=== PATIENT | male | born 1940 | race Caucasian/White ===

== ENCOUNTER 2016-10-13 10:43 | Emergency (ER) | payer MEDICARE, BC ==
[2016-10-13 10:57] VITALS: BP 133/81
--- NOTE | 2016-10-13 11:24 | EDM.PDOC ---
ED HPI GENERAL MEDICAL PROBLEM - General Chief Complaint: Cardiovascular Problem Stated Complaint: A-FIB Time Seen by Provider: 10/13/16 11:22 Source of Information: Reports: Patient, Family History Limitations: Reports: No Limitations - History of Present Illness INITIAL COMMENTS - FREE TEXT/NARRATIVE: pt arrived with a irregular heart rate. The pt thought he was in atrial fib. he has noted in the last month swelling in the left leg. 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 He does not have pain in the leg. Onset: Today, Sudden Duration: Hour(s): Location: Reports: Chest Associated Symptoms: Reports: No Other Symptoms, Other ( swelling in the left leg. ) - Related Data Allergies Allergy/AdvReac Type Severity Reaction Status Date / Time No Known Allergies Allergy Verified 10/13/16 10:58 Home Meds: Home Meds Simvastatin 80 mg PO BEDTIME 10/15/13 [History] Metoprolol Succinate 25 mg PO DAILY #30 tab.er.24h 05/04/16 [Rx] Warfarin [Coumadin] 2.5 mg PO DAILY 05/04/16 [History] Aspirin [Yves Chewable Aspirin] 81 mg PO DAILY 05/17/16 [History] Past Medical History HEENT History: Reports: Cataract Cardiovascular History: Reports: Afib, Blood Clots/VTE/DVT, High Cholesterol, Other (See Below) Other Cardiovascular History: Cardioversion Respiratory History: Reports: PE Other Respiratory History: 2006 Gastrointestinal History: Reports: None Genitourinary History: Reports: BPH, Other (See Below) Other Genitourinary History: prostrate cancer Neurological History: Reports: TIA Oncologic (Cancer) History: Reports: Prostate - Infectious Disease History Infectious Disease History: Reports: Chicken Pox, Measles - Past Surgical History HEENT Surgical History: Reports: Cataract Surgery GI Surgical History: Reports: Appendectomy, Hernia Repair/Other Male Surgical History: Reports: Prostatectomy Musculoskeletal Surgical History: Reports: Hip Replacement Social & Family History - Family History Cardiac: Reports: CAD - Tobacco Use Smoking Status *Q: Never Smoker Second Hand Smoke Exposure: No - Caffeine Use Caffeine Use: Reports: Coffee, Soda - Alcohol Use Days Per Week of Alcohol Use: 7 Number of Drinks Per Day: 2 Total Drinks Per Week: 14 - Recreational Drug Use Recreational Drug Use: No ED ROS GENERAL - Review of Systems Review Of Systems: See Below Constitutional: Reports: No Symptoms HEENT: Reports: No Symptoms Respiratory: Reports: No Symptoms Cardiovascular: Reports: Palpitations Endocrine: Reports: No Symptoms GI/Abdominal: Reports: No Symptoms : Reports: No Symptoms ED EXAM, GENERAL - Physical Exam Exam: See Below Free Text/Narrative:: pt arrived with a irregular heart rate. He felt like it started this am. He did not have ny chest pain. He rai noted swelling in the left leg. Exam Limited By: No Limitations General Appearance: Alert, No Apparent Distress Ears: Normal TMs Nose: Normal Inspection Throat/Mouth: Normal Inspection Head: Atraumatic Neck: Normal Inspection Respiratory/Chest: No Respiratory Distress Cardiovascular: Irregularly Irregular, Other ( rate is in the 80s. ) GI/Abdominal: Soft (Male) Exam: No Hernia Rectal (Males) Exam: Deferred Back Exam: Normal Inspection Extremities: No Pedal Edema Neurological: Alert, Oriented, Normal Cognition Psychiatric: Normal Affect Course - Vital Signs Last Recorded V/S: Last Vital Signs Temp 36.1 C 10/13/16 10:56 Pulse 82 10/13/16 10:56 Resp 14 10/13/16 10:56 BP 133/81 10/13/16 10:56 Pulse Ox 98 10/13/16 10:56 - Orders/Labs/Meds Orders: Active Orders 24 hr Category Date Time Status EKG Documentation Completion [RC] ASDIRECTED Care 10/13/16 11:08 Active Iopamidol [Isovue-370 (76%)] Med 10/13/16 12:30 Active 100 ml IV . DIRECTED Sodium Chloride 0.9% [Normal Saline] 100 ml Med 10/13/16 12:30 Active IV ASDIRECTED Sodium Chloride 0.9% [Saline Flush] Med 10/13/16 12:17 Active 10 ml FLUSH ASDIRECTED PRN EKG 12 Lead [EK] Routine Ther 10/13/16 11:08 Ordered Medication Orders Sodium Chloride (Normal Saline) 100 mls @ 3.5 mls/sec IV ASDIRECTED KYLIE Stop: 10/13/16 23:00 Last Admin: 10/13/16 12:33 Dose: 4 mls/sec Iopamidol (Isovue-370 (76%)) 100 ml IV . DIRECTED KYLIE Stop: 10/13/16 23:00 Last Admin: 10/13/16 12:33 Dose: 100 ml Sodium Chloride (Saline Flush) 10 ml FLUSH ASDIRECTED PRN PRN Reason: Keep Vein Open Stop: 10/13/16 23:00 Last Admin: 10/13/16 12:34 Dose: 10 ml Labs: Laboratory Tests 10/13/16 10/13/16 10/13/16 Range/Units 11:18 11:18 11:18 WBC 8.3 (4.5-11.0) K/uL RBC 4.67 (4.30-5.90) M/uL Hgb 14.7 (12.0-15.0) g/dL Hct 42.5 (40.0-54.0) % MCV 91 (80-98) fL MCH 32 H (27-31) pg MCHC 35 (32-36) % Plt Count 233 (150-400) K/uL Neut % (Auto) 60 (36-66) % Lymph % (Auto) 26 (24-44) % [place] % (Auto) 9 H (2-6) % Eos % (Auto) 5 H (2-4) % Baso % (Auto) 1 (0-1) % PT (9.5-12.0) sec INR (0.80-1.20) Sodium 137 L (140-148) mmol/L Potassium 4.2 (3.6-5.2) mmol/L Chloride 104 (100-108) mmol/L Carbon Dioxide 27 (21-32) mmol/L Anion Gap 10.2 (5.0-14.0) mmol/L BUN 14 (7-18) mg/dL Creatinine 1.1 (0.8-1.3) mg/dL Est Cr Clr Drug Dosing 58.21 mL/min Estimated GFR (MDRD) > 60 (>60) Glucose 109 H (74-106) mg/dL Calcium 8.8 (8.5-10.1) mg/dL Magnesium 1.9 (1.8-2.4) mg/dL Total Bilirubin 0.4 (0.2-1.0) mg/dL AST 19 (15-37) U/L ALT 16 (12-78) U/L Alkaline Phosphatase 84 (46-116) U/L Troponin I (0.000-0.056) ng/mL Total Protein 6.3 L (6.4-8.2) g/dL Albumin 2.8 L (3.4-5.0) g/dL Globulin 3.5 (2.3-3.5) g/dL Albumin/Globulin Ratio 0.8 L (1.2-2.2) 10/13/16 10/13/16 Range/Units 11:18 11:19 WBC (4.5-11.0) K/uL RBC (4.30-5.90) M/uL Hgb (12.0-15.0) g/dL Hct (40.0-54.0) % MCV (80-98) fL MCH (27-31) pg MCHC (32-36) % Plt Count (150-400) K/uL Neut % (Auto) (36-66) % Lymph % (Auto) (24-44) % [place] % (Auto) (2-6) % Eos % (Auto) (2-4) % Baso % (Auto) (0-1) % PT 21.6 H (9.5-12.0) sec INR 1.96 H (0.80-1.20) Sodium (140-148) mmol/L Potassium (3.6-5.2) mmol/L Chloride (100-108) mmol/L Carbon Dioxide (21-32) mmol/L Anion Gap (5.0-14.0) mmol/L BUN (7-18) mg/dL Creatinine (0.8-1.3) mg/dL Est Cr Clr Drug Dosing mL/min Estimated GFR (MDRD) (>60) Glucose (74-106) mg/dL Calcium (8.5-10.1) mg/dL Magnesium (1.8-2.4) mg/dL Total Bilirubin (0.2-1.0) mg/dL AST (15-37) U/L ALT (12-78) U/L Alkaline Phosphatase (46-116) U/L Troponin I 0.020 (0.000-0.056) ng/mL Total Protein (6.4-8.2) g/dL Albumin (3.4-5.0) g/dL Globulin (2.3-3.5) g/dL Albumin/Globulin Ratio (1.2-2.2) Meds: Medications Generic Name Dose Route Start Last Admin Trade Name Freq PRN Reason Stop Dose Admin Sodium Chloride 100 mls @ 3.5 mls/sec 10/13/16 12:30 10/13/16 12:33 Normal Saline IV 10/13/16 23:00 4 mls/sec ASDIRECTED KYLIE Administration Iopamidol 100 ml 10/13/16 12:30 10/13/16 12:33 Isovue-370 (76%) IV 10/13/16 23:00 100 ml . DIRECTED KYLIE Administration Sodium Chloride 10 ml 10/13/16 12:17 10/13/16 12:34 Saline Flush FLUSH 10/13/16 23:00 10 ml ASDIRECTED PRN Administration Keep Vein Open - Re-Assessments/Exams Free Text/Narrative Re-Assessment/Exam: 10/13/16 13:06 pt arrived with atrial fib. He had swelling of the left leg and had an Us which showed a clot in the left leg behind the knee. A cat scan of the chest was neg. -- for PE. Dr Underwood will consult regarding a cardopversion. Departure - Departure Time of Disposition: 14:43 Disposition: Home, Self-Care 01 Reason for Transfer *Q: Primary PCI Indicated Condition: Fair Clinical Impression: Atrial fibrillation, DVT (deep venous thrombosis) Forms: ED Department Discharge Care Plan Goals: appt with Dr stephenson in 1 week, , follow instructions of Dr underwood, rtc for a INR tomorrow. - My Orders Last 24 Hours: My Active Orders 10/13/16 11:08 EKG Documentation Completion [RC] ASDIRECTED EKG 12 Lead [EK] Routine 10/13/16 12:17 Sodium Chloride 0.9% [Saline Flush] 10 ml FLUSH ASDIRECTED PRN 10/13/16 12:30 Iopamidol [Isovue-370 (76%)] 100 ml IV . DIRECTED Sodium Chloride 0.9% [Normal Saline] 100 ml IV ASDIRECTED - Assessment/Plan Last 24 Hours: My Active Orders 10/13/16 11:08 EKG Documentation Completion [RC] ASDIRECTED EKG 12 Lead [EK] Routine 10/13/16 12:17 Sodium Chloride 0.9% [Saline Flush] 10 ml FLUSH ASDIRECTED PRN 10/13/16 12:30 Iopamidol [Isovue-370 (76%)] 100 ml IV . DIRECTED Sodium Chloride 0.9% [Normal Saline] 100 ml IV ASDIRECTED
[2016-10-13] MEDS ORDERED: Sodium Chloride 0.9% 10 ML Syringe FLUSH PRN (12:17)
[2016-10-13] MEDS ORDERED: Iopamidol 755 Mg/ML 100 ML Bottle IV SCH (12:30)
[2016-10-13] MEDS ORDERED: Sodium Chloride 0.9% 100 ML IV SCH (12:30)
--- NOTE | 2016-10-13 12:33 | CR ---
Chest 1V Frontal HISTORY: Atrial fibrillation COMPARISON: 01/27/2016. FINDINGS: Mild stable cardiomegaly. Slightly rotated film to the right. No focal infiltrates or effu sions. No acute congestive change.
--- NOTE | 2016-10-13 12:35 | US ---
VL Duplex Lwr Ext Veins Ltd Lt HISTORY: Pain, swelling. COMPARISON: None FINDINGS: There is deep venous thrombosis within the left popliteal vein. The common femoral vein, f emoral vein and posterior tibial vein are patent. Patient has INR of 2.6.
--- NOTE | 2016-10-13 12:50 | CT ---
Ang Chest HISTORY: Shortness of breath. Dose: Total DLP 218. COMPARISON: Prior CT chest 07/28/2006. FINDINGS: No evidence for pulmonary embolus. No dense infiltrate. Dependent atelectatic change. Ther e is mild cardiomegaly. Scans of the upper abdomen are unremarkable. Impression: 1. No evidence for pulmonary embolus. Cardiomegaly.
[2016-10-13] MEDS ORDERED: Enoxaparin 120 MG/0.8 ML Syringe SUBCUT ONE (15:15)
--- NOTE | 2016-10-13 17:12 | PCM.CONS ---
H&P History of Present Illness - General Date of Service: 10/13/16 Source of Information: Patient, Family, Old Records, Provider, RN Notes Reviewed History Limitations: Reports: No Limitations - History of Present Illness Initial Comments - Free Text/Narative: This patient is a 76-year-old gentleman with been asked to see in the emergency department by Dr. Hanson for recommendations concerning management of deep vein thrombosis in the left lower leg as well as atrial fibrillation with controlled ventricular response. 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 He is on long-term oral anticoagulation with warfarin, INR was found to be subtherapeutic today at 1.96. He spent the winter in [place] and on his last INR check there was found to be therapeutic. When he returned to [place] had an INR checked that was elevated at 3.5 and so his dose of warfarin was decreased. After the decrease in dose he had a follow-up INR 1 week later that was therapeutic at 2.2. This morning he was walking upstairs noted that he was significantly more short of breath than usual, when he checked his heart rate noted that it was within normal range but the rhythm was very irregular. On evaluation in the emergency department is noted to have atrial fibrillation with controlled ventricular response. Also while in the emergency department he reported swelling in his left leg over the past few weeks. Venous Doppler study was obtained that showed evidence of a clot at the left knee, but nothing into the thigh. CT scan of the chest was obtained with contrast and showed no evidence of pulmonary embolism. Other than the shortness of breath he experienced this morning and swelling in the left leg he's been feeling well and has had no symptoms of chest pain or pressure or significant lightheadedness. - Related Data Allergies/Adverse Reactions: Allergies Allergy/AdvReac Type Severity Reaction Status Date / Time No Known Allergies Allergy Verified 10/13/16 10:58 Home Medications: Home Meds Simvastatin 80 mg PO BEDTIME 10/15/13 [History] Metoprolol Succinate 25 mg PO DAILY #30 tab.er.24h 05/04/16 [Rx] Warfarin [Coumadin] 2.5 mg PO DAILY 05/04/16 [History] Aspirin [Yves Chewable Aspirin] 81 mg PO DAILY 05/17/16 [History] Past Medical History HEENT History: Reports: Cataract Cardiovascular History: Reports: Afib, Blood Clots/VTE/DVT, High Cholesterol, Other (See Below) Other Cardiovascular History: Cardioversion Respiratory History: Reports: PE Other Respiratory History: 2007 Gastrointestinal History: Reports: None Genitourinary History: Reports: BPH, Other (See Below) Other Genitourinary History: prostrate cancer Neurological History: Reports: TIA Oncologic (Cancer) History: Reports: Prostate - Infectious Disease History Infectious Disease History: Reports: Chicken Pox, Measles - Past Surgical History HEENT Surgical History: Reports: Cataract Surgery GI Surgical History: Reports: Appendectomy, Hernia Repair/Other Male Surgical History: Reports: Prostatectomy Musculoskeletal Surgical History: Reports: Hip Replacement Social & Family History - Family History Cardiac: Reports: CAD - Tobacco Use Smoking Status *Q: Never Smoker Second Hand Smoke Exposure: No - Caffeine Use Caffeine Use: Reports: Coffee, Soda - Alcohol Use Days Per Week of Alcohol Use: 7 Number of Drinks Per Day: 2 Total Drinks Per Week: 14 - Recreational Drug Use Recreational Drug Use: No H&P Review of Systems - Review of Systems: Review Of Systems: See Below General: Reports: No Symptoms Pulmonary: Reports: Shortness of Breath. Denies: Wheezing, Pleuritic Chest Pain , Cough, Sputum, Hemoptysis Cardiovascular: Reports: Dyspnea on Exertion, Edema. Denies: Chest Pain, Palpitations, Orthopnea, PND, Lightheadedness, Syncope Gastrointestinal: Reports: No Symptoms Genitourinary: Reports: No Symptoms Musculoskeletal: Reports: No Symptoms Skin: Reports: No Symptoms Psychiatric: Reports: No Symptoms Neurological: Reports: No Symptoms Hematologic/Lymphatic: Reports: No Symptoms Immunologic: Reports: No Symptoms Exam - Exam Exam: See Below - Vital Signs Vital Signs: Last Vital Signs Temp 97.0 F 10/13/16 10:56 Pulse 82 10/13/16 10:56 Resp 14 10/13/16 10:56 BP 133/81 10/13/16 10:56 Pulse Ox 98 10/13/16 10:56 Weight: 183 lb 10.321 oz - Exam Quality Assessment: Supplemental Oxygen, DVT Prophylaxis Neck: Supple, Trachea Midline, +2 Carotid Pulse wo Bruit Lungs: Clear to Auscultation, Normal Respiratory Effort Cardiovascular: Regular Rate, Normal S1, Normal S2, Irregular Rhythm. No: Bradycardia, Tachycardia, Systolic Murmur, Diastolic Murmur Abdomen: Normal Bowel Sounds, Soft Extremities: Edema (Left lower extremity) - Patient Data Lab Results Last 24 hrs: Laboratory Results - last 24 hr 10/13/16 10/13/16 10/13/16 Range/Units 11:18 11:18 11:18 WBC 8.3 (4.5-11.0) K/uL RBC 4.67 (4.30-5.90) M/uL Hgb 14.7 (12.0-15.0) g/dL Hct 42.5 (40.0-54.0) % MCV 91 (80-98) fL MCH 32 H (27-31) pg MCHC 35 (32-36) % Plt Count 233 (150-400) K/uL Neut % (Auto) 60 (36-66) % Lymph % (Auto) 26 (24-44) % [place] % (Auto) 9 H (2-6) % Eos % (Auto) 5 H (2-4) % Baso % (Auto) 1 (0-1) % PT (9.5-12.0) sec INR (0.80-1.20) Sodium 137 L (140-148) mmol/L Potassium 4.2 (3.6-5.2) mmol/L Chloride 104 (100-108) mmol/L Carbon Dioxide 27 (21-32) mmol/L Anion Gap 10.2 (5.0-14.0) mmol/L BUN 14 (7-18) mg/dL Creatinine 1.1 (0.8-1.3) mg/dL Est Cr Clr Drug Dosing 58.21 mL/min Estimated GFR (MDRD) > 60 (>60) Glucose 109 H (74-106) mg/dL Calcium 8.8 (8.5-10.1) mg/dL Magnesium 1.9 (1.8-2.4) mg/dL Total Bilirubin 0.4 (0.2-1.0) mg/dL AST 19 (15-37) U/L ALT 16 (12-78) U/L Alkaline Phosphatase 84 (46-116) U/L Troponin I (0.000-0.056) ng/mL Total Protein 6.3 L (6.4-8.2) g/dL Albumin 2.8 L (3.4-5.0) g/dL Globulin 3.5 (2.3-3.5) g/dL Albumin/Globulin Ratio 0.8 L (1.2-2.2) 10/13/16 10/13/16 Range/Units 11:18 11:19 WBC (4.5-11.0) K/uL RBC (4.30-5.90) M/uL Hgb (12.0-15.0) g/dL Hct (40.0-54.0) % MCV (80-98) fL MCH (27-31) pg MCHC (32-36) % Plt Count (150-400) K/uL Neut % (Auto) (36-66) % Lymph % (Auto) (24-44) % [place] % (Auto) (2-6) % Eos % (Auto) (2-4) % Baso % (Auto) (0-1) % PT 21.6 H (9.5-12.0) sec INR 1.96 H (0.80-1.20) Sodium (140-148) mmol/L Potassium (3.6-5.2) mmol/L Chloride (100-108) mmol/L Carbon Dioxide (21-32) mmol/L Anion Gap (5.0-14.0) mmol/L BUN (7-18) mg/dL Creatinine (0.8-1.3) mg/dL Est Cr Clr Drug Dosing mL/min Estimated GFR (MDRD) (>60) Glucose (74-106) mg/dL Calcium (8.5-10.1) mg/dL Magnesium (1.8-2.4) mg/dL Total Bilirubin (0.2-1.0) mg/dL AST (15-37) U/L ALT (12-78) U/L Alkaline Phosphatase (46-116) U/L Troponin I 0.020 (0.000-0.056) ng/mL Total Protein (6.4-8.2) g/dL Albumin (3.4-5.0) g/dL Globulin (2.3-3.5) g/dL Albumin/Globulin Ratio (1.2-2.2) Result Diagrams: 10/13/16 11:18 10/13/16 11:18 Consult PN Assessment/Plan Procedures: Procedures ASSAY OF CK (CPK) (01/27/16) ASSAY OF LACTIC ACID (10/15/13) ASSAY OF TROPONIN QUANT (05/04/16) ASSAY THYROID STIM HORMONE (01/27/16) CARDIOVASCULAR STRESS TEST (05/17/16) CARDIOVASCULAR STRESS TEST (05/17/16) CHEST X-RAY 1 VIEW FRONTAL (01/27/16) COMPLETE CBC W/AUTO DIFF WBC (01/27/16) COMPREHEN METABOLIC PANEL (01/27/16) EHRLICHIA ANTIBODY (10/15/13) ELECTROCARDIOGRAM REPORT (10/15/13) ELECTROCARDIOGRAM TRACING (05/04/16) EMERGENCY DEPT VISIT (05/04/16) EMERGENCY DEPT VISIT (01/27/16) EMERGENCY DEPT VISIT (10/15/13) GAIT TRAINING THERAPY (02/15/14) HT MUSCLE IMAGE SPECT MULT (05/17/16) LYME DISEASE ANTIBODY (10/15/13) MANUAL THERAPY 1/> REGIONS (02/15/14) PROTHROMBIN TIME (05/04/16) PROTOZOA ANTIBODY NOS (10/15/13) PT EVALUATION (02/15/14) ROUTINE VENIPUNCTURE (05/04/16) SELF CARE MNGMENT TRAINING (03/04/14) THER/PROPH/DIAG IV INF ADDON (01/27/16) THER/PROPH/DIAG IV INF INIT (01/27/16) THERAPEUTIC ACTIVITIES (03/04/14) THERAPEUTIC EXERCISES (03/22/14) TTE W/DOPPLER COMPLETE (02/02/16) URINALYSIS AUTO W/SCOPE (01/27/16) Problem List Initiated/Reviewed/Updated: Yes Plan: ASSESSMENT AND RECOMMENDATIONS ATRIAL FIBRILLATION WITH CONTROLLED VENTRICULAR RESPONSE-no specific precipitating event, he has had a previous history of paroxysmal atrial fibrillation. He has been on anticoagulation but given the development of a left leg deep vein thrombosis a suspect that his INR has been subtherapeutic recently. Because he is not adequately anticoagulated I'm reluctant to consider cardioversion. Other than shortness of breath with exertion he is otherwise asymptomatic and I think with his ongoing adequate rate control can be discharged home for outpatient follow-up. -Optimize anticoagulation as outlined below -Continue current medical therapy for rate control -Follow-up next week with Dr. Garcia LEFT LOWER LEG DVT-he has no clot in the thigh and is at low risk for pulmonary embolism. He has had 2 previous episodes of DVT in one episode of pulmonary embolism. He is on long-term oral anticoagulation with warfarin, concern is that he may have been subtherapeutic over the past few weeks which precipitated the deep vein thrombosis. -Lovenox 1.5 mg/kg subcutaneous now -Warfarin 5 mg by mouth now -Return in a.m. for INR, results should be called to me and I will instruct the patient on further Lovenox and/or warfarin dosing -Patient already has appointment in the Coumadin clinic in 2 days -Continue Lovenox until INR is within therapeutic range -Continue close follow-up in the Coumadin clinic -Follow-up venous Doppler study next week prior to seeing Dr. Garcia to assure that the clot is not propagating into the thigh -Follow-up appointment in [address] Garcia Requesting Provider: SOPHIA Date Consult Requested: 10/13/16 Reason for Consult: Atrial fibrillation and deep vein thrombosis of the left leg Patient History Reviewed: Yes Notified Requestor: Yes
== END 2016-10-13 15:31 | disposition home or self-care (01) ==
LOC: JP.ED 10:43
DX: I48.91 Unspecified atrial fibrillation (principal); I82.409 Acute embolism and thrombosis of unspecified deep veins of unspecified lower extremity; E78.00 Pure hypercholesterolemia, unspecified; Z86.73 Personal history of transient ischemic attack (TIA), and cerebral infarction without residual deficits; Z96.649 Presence of unspecified artificial hip joint; Z98.890 Other specified postprocedural states; Z85.46 Personal history of malignant neoplasm of prostate; Z79.82 Long term (current) use of aspirin; Z79.01 Long term (current) use of anticoagulants; Z79.899 Other long term (current) drug therapy
CPT/HCPCS: 36415; 71010; 71275; 80053; 83735; 84484; 85025; 85610; 93005; 93971; 96360; 96361; 99284; 99285; J1650; J7030; J7050; Q9967; 93010

== ENCOUNTER 2016-11-17 08:15 | Emergency (ER) | payer MEDICARE, BC ==
[2016-11-17] MEDS ORDERED: Sodium Chloride 0.9% 10 ML Syringe FLUSH PRN (08:31)
--- NOTE | 2016-11-17 09:21 | EDM.PDOC ---
ED HPI GENERAL MEDICAL PROBLEM - General Chief Complaint: Cardiovascular Problem Stated Complaint: AFIB Time Seen by Provider: 11/17/16 08:28 Source of Information: Reports: Patient, Family, Old Records, RN Notes Reviewed History Limitations: Reports: No Limitations - History of Present Illness INITIAL COMMENTS - FREE TEXT/NARRATIVE: 76-year-old gentleman presents emergency department day complaint of palpitations, he has a known history of paroxysmal atrial fibrillation he awoke this yesterday morning with these palpitations. Unclear of the exact time when this began. He states when he is at rest he is asymptomatic other than the feeling of an irregular heartbeat. However when he exerts himself his heart rate increases and he feels short of breath, this quickly resolves with rest. Review of the last month he was in atrial fibrillation on October 13 presented to the emergency department was found to have an active blood clot in the left leg Coumadin was therapeutic elected not to do any further intervention at that time followed up with his primary on 20 October which demonstrated an EKG of sinus rhythm repeat ultrasound also done that week showed remaining clot below the knee on the left side. - Related Data Allergies Allergy/AdvReac Type Severity Reaction Status Date / Time No Known Allergies Allergy Verified 11/17/16 08:34 Home Meds: Home Meds Simvastatin 80 mg PO BEDTIME 10/15/13 [History] Metoprolol Succinate 25 mg PO DAILY #30 tab.er.24h 05/04/16 [Rx] Warfarin [Coumadin] 2.5 mg PO DAILY 05/04/16 [History] Aspirin [Yves Chewable Aspirin] 81 mg PO DAILY 05/17/16 [History] Past Medical History HEENT History: Reports: Cataract Cardiovascular History: Reports: Afib, Blood Clots/VTE/DVT, High Cholesterol, Other (See Below) Other Cardiovascular History: Cardioversion Respiratory History: Reports: PE Other Respiratory History: 2006 Genitourinary History: Reports: BPH, Other (See Below) Other Genitourinary History: prostrate cancer Neurological History: Reports: TIA Hematologic History: Reports: Anticoagulation Therapy Oncologic (Cancer) History: Reports: Prostate - Infectious Disease History Infectious Disease History: Reports: Chicken Pox, Measles - Past Surgical History HEENT Surgical History: Reports: Cataract Surgery GI Surgical History: Reports: Appendectomy, Hernia Repair/Other Male Surgical History: Reports: Prostatectomy Musculoskeletal Surgical History: Reports: Hip Replacement Social & Family History - Family History Cardiac: Reports: CAD - Tobacco Use Smoking Status *Q: Never Smoker Second Hand Smoke Exposure: No - Caffeine Use Caffeine Use: Reports: Coffee, Soda - Alcohol Use Days Per Week of Alcohol Use: 7 Number of Drinks Per Day: 2 Total Drinks Per Week: 14 - Recreational Drug Use Recreational Drug Use: No ED ROS GENERAL - Review of Systems Review Of Systems: See Below Constitutional: Reports: No Symptoms HEENT: Reports: No Symptoms Respiratory: Reports: Shortness of Breath Cardiovascular: Reports: Palpitations. Denies: Chest Pain GI/Abdominal: Reports: No Symptoms : Reports: No Symptoms ED EXAM, GENERAL - Physical Exam Exam: See Below Exam Limited By: No Limitations General Appearance: Alert, WD/WN, No Apparent Distress Eye Exam: Bilateral Eye: Normal Inspection Neck: Normal Inspection, Supple, Non-Tender, Full Range of Motion Respiratory/Chest: No Respiratory Distress, Lungs Clear, Normal Breath Sounds, No Accessory Muscle Use Cardiovascular: No Murmur, Irregularly Irregular Extremities: Other (Leg edema left side) Neurological: Alert, Oriented Course - Vital Signs Last Recorded V/S: Last Vital Signs Temp 97.0 F 11/17/16 08:43 Pulse 60 11/17/16 11:12 Resp 14 11/17/16 09:49 BP 113/72 11/17/16 11:12 Pulse Ox 96 11/17/16 11:12 - Orders/Labs/Meds Orders: Active Orders 24 hr Category Date Time Status Cardiac Monitoring [RC] .As Directed Care 11/17/16 08:31 Active EKG Documentation Completion [RC] ASDIRECTED Care 11/17/16 08:31 Active Peripheral IV Care [RC] . DIRECTED Care 11/17/16 08:31 Active Chest 1V Frontal [CR] Stat Exams 11/17/16 08:32 Ordered Diltiazem [Cardizem] 100 mg Med 11/17/16 09:30 Active Sodium Chloride 0.9% [Normal Saline] 100 ml IV TITRATE Sodium Chloride 0.9% [Saline Flush] Med 11/17/16 08:31 Active 10 ml FLUSH ASDIRECTED PRN Peripheral IV Insertion Adult [OM.PC] Stat Oth 11/17/16 08:31 Ordered Saline Lock Insert [OM.PC] Stat Oth 11/17/16 08:31 Ordered EKG 12 Lead [EK] Stat Ther 11/17/16 08:31 Ordered Medication Orders Diltiazem HCl 100 mg/ Sodium (Chloride) 100 mls @ 5 mls/hr IV TITRATE KYLIE; 5 MG /HR PRN Reason: Protocol Sodium Chloride (Saline Flush) 10 ml FLUSH ASDIRECTED PRN PRN Reason: Keep Vein Open Last Admin: 11/17/16 08:58 Dose: 10 ml Labs: Laboratory Tests 11/17/16 11/17/16 11/17/16 Range/Units 08:30 08:30 08:30 WBC 8.3 (4.5-11.0) K/uL RBC 5.01 (4.30-5.90) M/uL Hgb 15.4 H (12.0-15.0) g/dL Hct 45.0 (40.0-54.0) % MCV 90 (80-98) fL MCH 31 (27-31) pg MCHC 34 (32-36) % Plt Count 259 (150-400) K/uL Neut % (Auto) 59 (36-66) % Lymph % (Auto) 27 (24-44) % Wright % (Auto) 9 H (2-6) % Eos % (Auto) 5 H (2-4) % Baso % (Auto) 1 (0-1) % PT 21.7 H (9.5-12.0) sec INR 1.97 H (0.80-1.20) Sodium 138 L (140-148) mmol/L Potassium 4.4 (3.6-5.2) mmol/L Chloride 103 (100-108) mmol/L Carbon Dioxide 25 (21-32) mmol/L Anion Gap 14.4 H (5.0-14.0) mmol/L BUN 18 (7-18) mg/dL Creatinine 1.3 (0.8-1.3) mg/dL Est Cr Clr Drug Dosing 49.13 mL/min Estimated GFR (MDRD) 54 L (>60) Glucose 103 (74-106) mg/dL Calcium 8.6 (8.5-10.1) mg/dL Total Bilirubin 0.6 (0.2-1.0) mg/dL AST 21 (15-37) U/L ALT 21 (12-78) U/L Alkaline Phosphatase 86 (46-116) U/L Troponin I 0.037 (0.000-0.056) ng/mL Total Protein 7.1 (6.4-8.2) g/dL Albumin 3.0 L (3.4-5.0) g/dL Globulin 4.1 H (2.3-3.5) g/dL Albumin/Globulin Ratio 0.7 L (1.2-2.2) Meds: Medications Generic Name Dose Route Start Last Admin Trade Name Freq PRN Reason Stop Dose Admin Diltiazem HCl 100 mg/ Sodium 100 mls @ 5 mls/hr 11/17/16 09:30 Chloride IV TITRATE KYLIE Protocol 5 MG/HR Sodium Chloride 10 ml 11/17/16 08:31 11/17/16 08:58 Saline Flush FLUSH 10 ml ASDIRECTED PRN Administration Keep Vein Open Discontinued Medications Generic Name Dose Route Start Last Admin Trade Name Freq PRN Reason Stop Dose Admin Diltiazem HCl 25 mg 11/17/16 09:23 11/17/16 09:40 Diltiazem IVPUSH 11/17/16 09:24 25 mg ONETIME ONE Administration Departure - Departure Time of Disposition: 12:19 Disposition: DC/Tfer to Acute Hospital 02 Reason for Transfer *Q: Other (Transesophageal echo needed) Condition: Good Clinical Impression: Atrial fibrillation Qualifiers: Atrial fibrillation type: paroxysmal Qualified Code(s): I48.0 - Paroxysmal atrial fibrillation DVT (deep venous thrombosis) Qualifiers: DVT location: lower extremity Affected thrombotic vein of extremity: popliteal Chronicity: acute Laterality: left Qualified Code(s): I82.432 - Acute embolism and thrombosis of left popliteal vein Forms: ED Department Discharge Additional Instructions: Please transport to [facility] you need to register at the emergency department and you'll be a direct admit upstairs - My Orders Last 24 Hours: My Active Orders 11/17/16 08:31 Cardiac Monitoring [RC] .As Directed EKG Documentation Completion [RC] ASDIRECTED Peripheral IV Care [RC] . DIRECTED Sodium Chloride 0.9% [Saline Flush] 10 ml FLUSH ASDIRECTED PRN Peripheral IV Insertion Adult [OM.PC] Stat Saline Lock Insert [OM.PC] Stat EKG 12 Lead [EK] Stat 11/17/16 08:32 Chest 1V Frontal [CR] Stat 11/17/16 09:30 Diltiazem [Cardizem] 100 mg Sodium Chloride 0.9% [Normal Saline] 100 ml IV TITRATE - Assessment/Plan Last 24 Hours: My Active Orders 11/17/16 08:31 Cardiac Monitoring [RC] .As Directed EKG Documentation Completion [RC] ASDIRECTED Peripheral IV Care [RC] . 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 and dyslipidemia Etiology = unknown etiology Manifestations = tachycardia and shortness of breath upon exertion Location of injury = Home Lab values = INR subtherapeutic 1.97 albumin low at 3.0 consistent hypoalbuminemia, EKG demonstrates atrial fibrillation, chest x-ray shows no acute process I did review films myself I cannot appreciate any acute process, the official read from radiology is pending Plan I did discuss case with who kindly accepted the patient in transfer he will be transported via private vehicle since he is asymptomatic at rest plan is to do a transesophageal echo to verify no clot and then possibly set up for cardioversion Patient was in agreement with the plan all questions were answered, they were instructed to return to the emergency department or call for worsening symptoms. This note was dictated using [employer] voice recognition software please call with any questions.
[2016-11-17] MEDS ORDERED: Diltiazem 25 MG/5 ML SDV IVPUSH ONE (09:23)
[2016-11-17] MEDS ORDERED: Diltiazem 100 MG in Sodium Chloride 0.9% 100 ML IV SCH (09:30)
[2016-11-17 12:38] VITALS: BP 144/83
--- NOTE | 2016-11-17 12:45 | CR ---
Heart size upper limits of normal. No focal consolidation.
== END 2016-11-17 13:39 ==
LOC: JP.ED 08:15
DX: I48.0 Paroxysmal atrial fibrillation (principal); I82.432 Acute embolism and thrombosis of left popliteal vein; E78.00 Pure hypercholesterolemia, unspecified; Z86.73 Personal history of transient ischemic attack (TIA), and cerebral infarction without residual deficits; Z79.01 Long term (current) use of anticoagulants; Z98.49 Cataract extraction status, unspecified eye; Z90.49 Acquired absence of other specified parts of digestive tract; Z98.890 Other specified postprocedural states; Z85.46 Personal history of malignant neoplasm of prostate; Z86.711 Personal history of pulmonary embolism; Z79.82 Long term (current) use of aspirin; Z79.899 Other long term (current) drug therapy; Z96.649 Presence of unspecified artificial hip joint
CPT/HCPCS: 36415; 71010; 80053; 84484; 85025; 85610; 93005; 96374; 99285; J7050; 93010; J3490

== ENCOUNTER 2018-04-22 17:07 | Emergency (ER) | payer MEDICARE, BC ==
[2018-04-22 17:28] VITALS: BP 136/76
[2018-04-22] MEDS ORDERED: Bacitracin Oint 1 GM U/D Packet TOP ONE (17:52)
--- NOTE | 2018-04-22 17:55 | EDM.PDOC ---
ED HPI GENERAL MEDICAL PROBLEM - General Chief Complaint: Bite:Animal, Insect Stated Complaint: DOG BITE Time Seen by Provider: 04/22/18 17:51 Source of Information: Reports: Patient History Limitations: Reports: No Limitations - History of Present Illness INITIAL COMMENTS - FREE TEXT/NARRATIVE: pt has a bite on the mid portion of the rt leg. Onset: Today, Sudden Duration: Hour(s): Location: Reports: Lower Extremity, Right, Other (pt had a neighbors dog who bite him in the mid portion of the rt leg. ) Associated Symptoms: Reports: No Other Symptoms Right Leg Pain Score (Numeric/FACES): 2 - Related Data Allergies Allergy/AdvReac Type Severity Reaction Status Date / Time No Known Allergies Allergy Verified 04/22/18 17:33 Home Meds: Home Meds Simvastatin 80 mg PO BEDTIME 10/15/13 [History] Warfarin [Coumadin] 2.5 mg PO DAILY 05/04/16 [History] Aspirin [Yves Chewable Aspirin] 81 mg PO DAILY 05/17/16 [History] Sotalol HCl [Sotalol] 1 tab PO BID 04/22/18 [History] Past Medical History HEENT History: Reports: Cataract Cardiovascular History: Reports: Afib, Blood Clots/VTE/DVT, High Cholesterol, Other (See Below) Other Cardiovascular History: Cardioversion Respiratory History: Reports: PE Other Respiratory History: 2006 Gastrointestinal History: Reports: None Genitourinary History: Reports: BPH, Other (See Below) Other Genitourinary History: prostrate cancer Neurological History: Reports: TIA Hematologic History: Reports: Anticoagulation Therapy Oncologic (Cancer) History: Reports: Prostate - Infectious Disease History Infectious Disease History: Reports: Chicken Pox, Measles, Mumps - Past Surgical History HEENT Surgical History: Reports: Cataract Surgery GI Surgical History: Reports: Appendectomy, Hernia Repair/Other Male Surgical History: Reports: Prostatectomy Musculoskeletal Surgical History: Reports: Hip Replacement Social & Family History - Family History Cardiac: Reports: CAD - Tobacco Use Smoking Status *Q: Never Smoker Second Hand Smoke Exposure: No - Caffeine Use Caffeine Use: Reports: Coffee, Soda - Alcohol Use Days Per Week of Alcohol Use: 7 Number of Drinks Per Day: 1 Total Drinks Per Week: 7 - Recreational Drug Use Recreational Drug Use: No ED ROS GENERAL - Review of Systems Review Of Systems: See Below Constitutional: Reports: No Symptoms HEENT: Reports: No Symptoms Respiratory: Reports: Cough Cardiovascular: Reports: No Symptoms Endocrine: Reports: No Symptoms GI/Abdominal: Reports: No Symptoms : Reports: No Symptoms Musculoskeletal: Reports: Other ( dog bite in the mid portion of the rt leg. He is on coumadin and he has developed a small hematoma. ) ED EXAM, ANIMAL BITE - Physical Exam Exam: See Below Text/Narrative:: pt was bite by his neighbors dog who is current with his shots. The pt is on coumadin so he developed a small hematoma under the bite. He hjas 4 puncture wounds from the bite but the skin was not torn, Exam Limited By: No Limitations General Appearance: Alert Extremities: Other ( dog bite to the midportion of the left leg. He has a small hematoma under the bite. He is on coumadin. He has 4 puncture wounds. ) Course - Vital Signs Last Recorded V/S: Last Vital Signs Temp 35.5 C 04/22/18 17:38 Pulse 53 L 04/22/18 17:38 Resp 18 04/22/18 17:38 BP 136/76 04/22/18 17:38 Pulse Ox 97 04/22/18 17:38 - Orders/Labs/Meds Meds: Medications Discontinued Medications Generic Name Dose Route Start Last Admin Trade Name Freq PRN Reason Stop Dose Admin Bacitracin 1 dose 04/22/18 17:52 Bacitracin Oint 1 Gm TOP 04/22/18 17:53 ONETIME ONE Departure - Departure Time of Disposition: 17:52 Disposition: Home, Self-Care 01 Condition: Fair Clinical Impression: Dog bite - Discharge Information Referrals: Ambrocio Garcia MD [Primary Care Provider] - Forms: ED Department Discharge Care Plan Goals: augmentin 875 1 tab bid for 1 week, clean and dress daily with bacatracin, keep covered. cool pack for the next 72 hours then soak in warm soapy water. Pt should expect that this will look quite bruised. Use yogurt or probiotic while on the antibiotic.
== END 2018-04-22 18:10 | disposition home or self-care (01) ==
LOC: JP.ED 17:07
DX: S81.852A Open bite, left lower leg, initial encounter (principal); E78.00 Pure hypercholesterolemia, unspecified; I48.91 Unspecified atrial fibrillation; Z79.01 Long term (current) use of anticoagulants; Z79.899 Other long term (current) drug therapy; W54.0XXA Bitten by dog, initial encounter
CPT/HCPCS: 99283

== ENCOUNTER 2019-05-28 06:45 | Day surgery (SDC) | payer MEDICARE, BC ==
[~2019-05-28 06:45] MED LIST: Bupivacaine 0.5% 50 ML MDV ONE; Lidocaine 1% with EPINEPHrine 1:100,000 50 ML MDV ONE
[2019-05-28] MEDS ORDERED: fentaNYL 100 MCG/2 ML SDV ONE (07:14)
[2019-05-28] MEDS ORDERED: Propofol 200 MG/20 ML SDV ONE (07:14)
[2019-05-28] MEDS ORDERED: Midazolam 1 MG/ML 2 ML SDV ONE (07:14)
[2019-05-28] MEDS ORDERED: Acetaminophen 500 MG Tab PO ONE (07:30)
[2019-05-28] MEDS ORDERED: ceFAZolin 2 GM in Sodium Chloride 0.9% 100 ML IV ONE (08:00)
[2019-05-28] MEDS ORDERED: Dextrose 5%-Lactated Ringers 1,000 ML IV SCH (08:00)
[2019-05-28] MEDS ORDERED: ceFAZolin 2 GM in Premix Bag 1 BAG IV ONE (08:00)
[2019-05-28] MEDS ORDERED: Glycopyrrolate 0.2 MG/ML 5 ML MDV ONE (08:16)
[2019-05-28] MEDS ORDERED: Ketorolac 60 MG/2 ML SDV IM ONE (09:13)
[2019-05-28] MEDS ORDERED: Enoxaparin 80 MG/0.8 ML Syringe SUBCUT ONE (10:15)
[2019-05-28 10:50] VITALS: BP 149/58; PULSE 40
--- NOTE | 2019-06-03 12:30 | OR ---
DATE OF PROCEDURE: 05/28/2019 SURGEON: Robert Gary MD PREOPERATIVE DIAGNOSIS: Left inguinal hernia. POSTOPERATIVE DIAGNOSES: 1. Incarcerated left inguinal hernia. 2. Left ilioinguinal nerve at risk for scar entrapment. INDICATION FOR PROCEDURE: This is a 78-year-old, recently status post fall in which he sustained a new onset of a left inguinal hernia. Plan is to proceed with repair of this with a mesh and plug technique. Potential risks including bleeding, infection, injury to underlying viscera, problems with mesh becoming infected or the hernia recurring were all reviewed, that we often will divide the ilioinguinal nerve and sometimes the iliohypogastric nerve to avoid these getting caught up in scar causing significant chronic pain postoperatively were gone over and the patient wishes to proceed. DETAILS OF PROCEDURE: The patient was taken to the operating room, placed in a supine position. After IV sedation was administered, the abdomen and groin areas were prepped and draped. Left inguinal area was then anesthetized with 1% lidocaine mixed with Marcaine and a standard left inguinal incision was made and carried down through the skin and subcutaneous tissue and through the external oblique aponeurosis. Subaponeurotic flaps were then raised superiorly and inferiorly. The patient was noted to have no evident of hernia within the cord. It had a well-defined direct hernia located medially. Transversalis fascia overlying this was then incised and dissection of allowed dissecting down to Rober ligament and then the underside of the conjoint tendon medially, laterally, and superiorly. A large left mesh plug was then placed into the defect and affixed initially to the Rober ligament with titanium tacking screws. Following this, then the mesh was fixed to the underside of the conjoint tendon medially, superiorly, and laterally with horizontal mattress sutures of 2-0 Vicryl stitch. The conjoint tendon was then tacked down to the shelving portion of the inguinal ligament with a running 0 Vicryl stitch. The flat portion of the mesh plug system was placed across the inguinal floor and sutured lateral to the cord structures with 3-0 Vicryl stitch. External oblique aponeurosis was then approximated with a 4-0 Vicryl stitch and the subcutaneous tissue with 4-0 Vicryl stitch as well and the skin was then closed with 4-0 Vicryl subcuticular stitch. Dressing was applied. The patient was taken to the recovery room in satisfactory condition. Physician classroom assistant, Merry Loya, played an essential role in assisting in this case helping to position the patient, retract structures as needed, as well as suturing and cutting sutures when indicated. Her presence improved patient safety and decreased operative time. Robert Gray MD /[id number]
== END 2019-05-28 11:05 | disposition home or self-care (01) ==
LOC: JP.SDS 06:45
PROVIDERS: ATTEND Surgery
DX: K40.30 Unilateral inguinal hernia, with obstruction, without gangrene, not specified as recurrent (principal); G57.82 Other specified mononeuropathies of left lower limb; D17.6 Benign lipomatous neoplasm of spermatic cord
CPT/HCPCS: 49507; 55520; 64772; 88302; 88304; A9270; C1713; C1781; J0690; J1650; J1885; J2250; J2704; J3010; J3490; J7121

== ENCOUNTER 2019-09-13 08:14 | Day surgery (SDC) | payer MEDICARE, BC ==
[~2019-09-13 08:14] MED LIST changes: +Meropenem 500 MG SDV ONE
[2019-09-13] MEDS ORDERED: Acetaminophen 500 MG Tab PO ONE (08:30)
[2019-09-13] MEDS ORDERED: Dextrose 5%-Lactated Ringers 1,000 ML IV SCH (08:45)
[2019-09-13] MEDS ORDERED: ceFAZolin 2 GM in Premix Bag 1 BAG IV ONE (09:30)
[2019-09-13] MEDS ORDERED: Rocuronium 50 MG/5 ML Vial ONE (10:55)
[2019-09-13] MEDS ORDERED: Ondansetron 4 MG/2 ML SDV ONE (10:55)
[2019-09-13] MEDS ORDERED: fentaNYL 250 MCG/5 ML SDV ONE (10:55)
[2019-09-13] MEDS ORDERED: Propofol 200 MG/20 ML SDV ONE (10:55)
[2019-09-13] MEDS ORDERED: Dexamethasone 4 MG/ML SDV ONE (10:55)
[2019-09-13] MEDS ORDERED: Succinylcholine 200 MG/10 ML MDV ONE (10:55)
[2019-09-13] MEDS ORDERED: Atropine 0.4 MG/ML SDV ONE (12:06)
[2019-09-13] MEDS ORDERED: ePHEDrine 50 MG/ML SDV ONE (12:20)
[2019-09-13] MEDS ORDERED: Sodium Chloride 0.9% 10 ML ONE (12:21)
[2019-09-13] MEDS ORDERED: Mupirocin Oint 22 GM Tube ONE (12:38)
[2019-09-13] MEDS ORDERED: Lactated Ringers 1,000 ML ONE (13:55)
[2019-09-13] MEDS ORDERED: Acetaminophen/HYDROcodone 325-5 MG Tab PO PRN (14:53)
[2019-09-13 15:52] VITALS: BP 143/70; PULSE 39
--- NOTE | 2019-09-25 16:36 | OR ---
DATE OF PROCEDURE: 09/13/2019 SURGEON: Robert Gary MD PREOPERATIVE DIAGNOSIS: Deep left gluteal and left pelvic retroperitoneal fluid collection. POSTOPERATIVE DIAGNOSES: 1. Deep left gluteal inflammatory fluid collection with probable fat necrosis. 2. Left pelvic retroperitoneal inflammatory fluid collection with probable fragments of fat necrosis. 3. Enlarged left inguinal femoral lymph node. OPERATIVE PROCEDURES: 1. Drainage of deep left gluteal inflammatory fluid collection with probable extensive fat necrosis (33362). 2. Drainage of left pelvic retroperitoneal inflammatory fluid collection and debridement of associated fragments of fat necrosis (26897). 3. Excision of enlarged left inguinal femoral lymph node ([id number]). ANESTHESIA: General. WASHING MACHINE LOADER AND PULLER: Merry Loya PA-C INDICATIONS FOR PROCEDURE: An 79-year-old male who earlier this year fell and this appeared to result in some significant soft tissue injury. These developed into chronic swelling in his left leg and workup included initially a CAT scan showing a large fluid collection behind the gluteal muscles on the left side and then a left pelvic retroperitoneal fluid collection as well. The patient clinically is not infected, but he has probably had the significant degree of inflammation given the underlying trauma as the cause of the injury. Of note, on both CT scan and subsequent ultrasound, the left external iliac vein is significantly compressed by the pelvic fluid collection and may be contributing to the patient's chronic edema and discomfort in the leg. Plan is to proceed with drainage of each of the fluid collections as mentioned above though released through separate incisions although they may possibly communicate, this was not obvious on the imaging. Potential risks of the procedure including bleeding, infection, possibility that the procedures may not be helpful with regard to resolving significant amount of the musculoskeletal disability or leg edema were gone over and the patient wishes to proceed. DETAILS OF PROCEDURE: The patient was taken to the operating room and placed in a neutral supine position after general endotracheal anesthesia was induced. He was then marked in that position to outline the location of the pelvic fluid collection on left side. This extended down somewhat below the inguinal ligament and the latter site communicated the easiest point of entry into that. The patient was then placed into a right lateral decubitus position and the fluid collection behind the gluteal muscles was also marked out. That area was then prepped and draped. A transversely oriented incision was then made and carried down through the skin and subcutaneous tissue down through the gluteus muscles, which was then spread in the direction of fibers. Some synovial type of viscous fluid was then evacuated. There was marked inflammation in the fluid collection wall and there was a large volume of takedown of what is probably fat necrosis with the area having a large amount of material that appeared almost like fish eggs. All of this was then evacuated and cultures were obtained, and at that point, the area was irrigated with meropenem and Zyvox containing saline solution. A Jose-Romo drain was then taken out laterally and taken deep to the gluteal muscles. Bladder was then approximated with some 0 Vicryl stitch, subcutaneous tissue with some 4-0 Vicryl stitch and the skin then with shari. Drain was fixed with a 4-0 Vicryl stitch. The patient was now placed back into a supine position and the incision just below the inguinal ligament was made transversely. This was carried down through the skin and subcutaneous tissue. Fairly enlarged inguinal femoral lymph node was identified and this was excised for histologic evaluation. The fluid collection was then entered. This appeared to have decreased somewhat from the original ultrasound done just prior to the drainage of the gluteal fluid collection that indicates some probable degree of communication between the two elements. This likewise has a viscous fluid collection suggesting some degree of synovial fluid. There was no gross break of the periosteum over the palpable femur underlying this area. Once again, could then debride the similar breakdown of fatty tissue and this was also then irrigated with the above noted antibiotic- containing saline solution. Jose-Romo drain was then placed into this area involved and the fascia then approximated with some 2-0 Vicryl stitch, subcutaneous tissue with 4-0 Vicryl stitch, and the skin with shari. Drain was also fixed with some 4-0 Vicryl stitch. Cultures of this fluid have also been obtained. The patient was taken to the recovery room in satisfactory condition. Physician biology laboratory assistant, Merry Loya, played an essential role in assisting in this case, helping to position the patient, retract structures as needed as well as suturing and stapling as indicated. Her presence improved patient safety and decreased operative time. Robert Gary MD /[id number]
== END 2019-09-13 16:25 | disposition home or self-care (01) ==
LOC: JP.SDS 08:14
PROVIDERS: ATTEND Surgery
DX: K68.9 Other disorders of retroperitoneum (principal); M60.852 Other myositis, left thigh; M60.88 Other myositis, other site; M79.89 Other specified soft tissue disorders; R59.0 Localized enlarged lymph nodes; I48.91 Unspecified atrial fibrillation
CPT/HCPCS: 26990; 36415; 38531; 49060; 76998; 80053; 83735; 84100; 85027; 85610; 87070; 87075; 87205; A9270; J0330; J0461; J0690; J1100; J2020; J2185; J2405; J2704; J3010; J7120; J7121; J3490

== ENCOUNTER 2019-11-30 05:00 | Emergency (ER) | payer MEDICARE, BC ==
[2019-11-30] MEDS ORDERED: Sodium Chloride 0.9% 10 ML Syringe FLUSH PRN (05:29)
--- NOTE | 2019-11-30 05:45 | EDM.PDOC ---
<Yuliana Lynn - Last Filed: 11/30/19 06:31> ED HPI GENERAL MEDICAL PROBLEM - General Chief Complaint: Cardiovascular Problem Stated Complaint: A-FIB Time Seen by Provider: 11/30/19 05:28 Source of Information: Reports: Patient History Limitations: Reports: No Limitations - History of Present Illness INITIAL COMMENTS - FREE TEXT/NARRATIVE: Demetrius is an 79 yo male that presents to the ED with c/o irregular heartbeat. He has a history of atrial fibrillation episodes and previous cardioversions. Last episode of afib was in november 2016. He states that he felt fine when he went to bed last night and when he awoke this morning at 4am to void- he could feel like he had an irregular heartbeat. Rate upon arrival to ED is 75 and irregular. Denies any associated chest pains, cough, ill contacts, sore throat, poor appetite, or fevers. He is accompanied by his . Onset: Today Onset Date: 11/30/19 Duration: Hour(s): (less than 10 hours ago) Location: Reports: Chest Quality: Reports: Other (no pain- feels irregular heartbeat) Improves with: Reports: None Worsens with: Reports: Movement Associated Symptoms: Reports: No Other Symptoms - Related Data Allergies Allergy/AdvReac Type Severity Reaction Status Date / Time No Known Allergies Allergy Verified 11/30/19 05:12 Home Meds: Home Meds Simvastatin 40 mg PO BEDTIME 10/15/13 [History] Warfarin [Coumadin] 1.25 mg PO WE 05/04/16 [History] Sotalol HCl [Sotalol] 80 mg PO BID 04/22/18 [History] Latanoprost 1 drop EYEBOTH BEDTIME 05/23/19 [History] Warfarin [Coumadin] 2.5 mg PO SUMOTUTHFRSA 09/12/19 [History] Past Medical History HEENT History: Reports: Cataract, Glaucoma, Hard of Hearing Cardiovascular History: Reports: Afib, Blood Clots/VTE/DVT, High Cholesterol, Other (See Below) Other Cardiovascular History: Cardioversion x3 Respiratory History: Reports: PE Other Respiratory History: 2006 Gastrointestinal History: Reports: GERD Genitourinary History: Reports: BPH, Other (See Below) Other Genitourinary History: prostrate cancer Musculoskeletal History: Reports: Other (See Below) Other Musculoskeletal History: fell on ice Dec. 2019 and left leg/hip edema since Neurological History: Reports: Neuropathy, Peripheral, TIA Hematologic History: Reports: Anticoagulation Therapy Oncologic (Cancer) History: Reports: Prostate - Infectious Disease History Infectious Disease History: Reports: Chicken Pox, Measles, Mumps - Past Surgical History HEENT Surgical History: Reports: Cataract Surgery Cardiovascular Surgical History: Reports: None Respiratory Surgical History: Reports: None GI Surgical History: Reports: Appendectomy, Colonoscopy, Hernia Repair/Other Male Surgical History: Reports: Prostatectomy Neurological Surgical History: Reports: None Musculoskeletal Surgical History: Reports: Hip Replacement Dermatological Surgical History: Reports: None Social & Family History - Family History Cardiac: Reports: CAD, ID Neurological: Reports: Parkinson's Psychiatric: Reports: Other (See Below) Other Psychiatric Family History: brother related to agent orange Oncologic: Reports: Lung - Tobacco Use Smoking Status *Q: Never Smoker - Caffeine Use Caffeine Use: Reports: Coffee - Alcohol Use Days Per Week of Alcohol Use: 7 Number of Drinks Per Day: 1 Total Drinks Per Week: 7 - Recreational Drug Use Recreational Drug Use: No ED ROS GENERAL - Review of Systems Review Of Systems: See Below Constitutional: Reports: No Symptoms. Denies: Fever, Weakness, Decreased Appetite HEENT: Reports: No Symptoms Respiratory: Reports: No Symptoms Cardiovascular: Reports: Palpitations Endocrine: Reports: No Symptoms GI/Abdominal: Reports: No Symptoms : Reports: No Symptoms Musculoskeletal: Reports: No Symptoms Skin: Reports: No Symptoms Neurological: Reports: No Symptoms Psychiatric: Reports: No Symptoms Hematologic/Lymphatic: Reports: No Symptoms Immunologic: Reports: No Symptoms ED EXAM, GENERAL - Physical Exam Exam: See Below Exam Limited By: No Limitations General Appearance: Alert, WD/WN, No Apparent Distress Eye Exam: Bilateral Eye: Normal Inspection, Other (arcus present bilat) Ears: Normal External Exam, Normal Canal, Hearing Grossly Normal, Other (right ear has a moderate amount of cerumen) Ear Exam: Left Ear: TM normal Nose: Normal Inspection, Normal Mucosa Throat/Mouth: Normal Inspection, Normal Oropharynx Head: Atraumatic, Normocephalic Neck: Normal Inspection, Supple, Full Range of Motion. No: Lymphadenopathy (R), Lymphadenopathy (L) Respiratory/Chest: No Respiratory Distress, Lungs Clear, Normal Breath Sounds. No: Wheezing Cardiovascular: Normal Peripheral Pulses, Other (afib: rate 70s) Peripheral Pulses: 1+: Radial (R), 2+: Radial (L) GI/Abdominal: Soft, Non-Tender Back Exam: Normal Inspection. No: CVA Tenderness (R), CVA Tenderness (L) Extremities: Normal Inspection, Normal Range of Motion, Normal Capillary Refill, Pedal Edema (mild left leg- been ongoing for a year) Neurological: Alert, Oriented Psychiatric: Normal Affect, Normal Mood Skin Exam: Warm, Intact Lymphatic: No Adenopathy EKG INTERPRETATION Rhythm: A-Fib Course - Radiology Interpretation Free Text/Narrative:: no changes on chest x-ray from previous one. official radiology reading pending. - Re-Assessments/Exams Free Text/Narrative Re-Assessment/Exam: 11/30/19 06:31 Plan for electrical cardioversion at 7:[address] Chavez and anesthesia. Pt has been NPO since prior to going to bed yesterday evening. Departure - Departure Disposition: Home, Self-Care 01 Clinical Impression: Atrial fibrillation Qualifiers: Atrial fibrillation type: paroxysmal Qualified Code(s): I48.0 - Paroxysmal atrial fibrillation Instructions: Atrial Fibrillation Referrals: PCP,None [Primary Care Provider] - Forms: ED Department Discharge Care Plan Goals: Continue current medications, activity as tolerated, and return anytime if worsening or concerns. Sepsis Event Note (ED) - Evaluation Sepsis Screening Result: No Definite Risk <Ambrocio Jacques - Last Filed: 11/30/19 08:28> Course - Vital Signs Last Recorded V/S: Last Vital Signs Temp 97.5 F 11/30/19 05:17 Pulse 75 11/30/19 05:17 Resp 15 11/30/19 05:17 BP 162/99 H 11/30/19 05:17 Pulse Ox 98 11/30/19 05:17 - Orders/Labs/Meds Orders: Active Orders 24 hr Category Date Time Status Chest 1V Frontal [CR] Stat Exams 11/30/19 05:26 Taken Saline Lock Insert [OM.PC] Routine Oth 11/30/19 05:29 Ordered EKG 12 Lead [EK] Routine Ther 11/30/19 05:26 Ordered Labs: Laboratory Tests 11/30/19 11/30/19 11/30/19 Range/Units 05:18 05:18 05:18 WBC 7.5 (4.5-11.0) K/uL RBC 4.88 (4.30-5.90) M/uL Hgb 14.9 D (12.0-15.0) g/dL Hct 43.0 (40.0-54.0) % MCV 88 (80-98) fL MCH 31 (27-31) pg MCHC 35 (32-36) % Plt Count 217 (150-400) K/uL Neut % (Auto) 54 (36-66) % Lymph % (Auto) 30 (24-44) % [place] % (Auto) 9 H (2-6) % Eos % (Auto) 6 H (2-4) % Baso % (Auto) 1 (0-1) % PT 21.4 H (9.5-12.0) sec INR 1.99 H (0.80-1.20) Sodium 136 L (140-148) mmol/L Potassium 4.2 (3.6-5.2) mmol/L Chloride 103 (100-108) mmol/L Carbon Dioxide 26 (21-32) mmol/L Anion Gap 11.2 (5.0-14.0) mmol/L BUN 11 (7-18) mg/dL Creatinine 1.0 (0.8-1.3) mg/dL Est Cr Clr Drug Dosing 62.75 mL/min Estimated GFR (MDRD) > 60 (>60) Glucose 105 (74-106) mg/dL Calcium 8.6 (8.5-10.1) mg/dL Magnesium 1.9 (1.8-2.4) mg/dL Total Bilirubin 0.6 (0.2-1.0) mg/dL AST 25 (15-37) U/L ALT 20 (12-78) U/L Alkaline Phosphatase 104 (46-116) U/L Total Protein 7.1 (6.4-8.2) g/dL Albumin 3.0 L (3.4-5.0) g/dL Globulin 4.1 H (2.3-3.5) g/dL Albumin/Globulin Ratio 0.7 L (1.2-2.2) TSH, Ultra Sensitive (0.358-3.740) uIU/mL Urine Color (YELLOW) Urine Appearance (CLEAR) Urine pH (5.0-8.0) Ur Specific [place] (1.008-1.030) Urine Protein (NEGATIVE) mg/dL Urine Glucose (UA) (NEGATIVE) mg/dL Urine Ketones (NEGATIVE) mg/dL Urine Occult Blood (NEGATIVE) Urine Nitrite (NEGATIVE) Urine Bilirubin (NEGATIVE) Urine Urobilinogen (0.2-1.0) EU/dL Ur Leukocyte Esterase (NEGATIVE) Urine RBC (0-5) Urine WBC (0-5) Ur Epithelial Cells Amorphous Sediment Urine Bacteria Urine Mucus 11/30/19 11/30/19 Range/Units 05:18 05:39 WBC (4.5-11.0) K/uL RBC (4.30-5.90) M/uL Hgb (12.0-15.0) g/dL Hct (40.0-54.0) % MCV (80-98) fL MCH (27-31) pg MCHC (32-36) % Plt Count (150-400) K/uL Neut % (Auto) (36-66) % Lymph % (Auto) (24-44) % [place] % (Auto) (2-6) % Eos % (Auto) (2-4) % Baso % (Auto) (0-1) % PT (9.5-12.0) sec INR (0.80-1.20) Sodium (140-148) mmol/L Potassium (3.6-5.2) mmol/L Chloride (100-108) mmol/L Carbon Dioxide (21-32) mmol/L Anion Gap (5.0-14.0) mmol/L BUN (7-18) mg/dL Creatinine (0.8-1.3) mg/dL Est Cr Clr Drug Dosing mL/min Estimated GFR (MDRD) (>60) Glucose (74-106) mg/dL Calcium (8.5-10.1) mg/dL Magnesium (1.8-2.4) mg/dL Total Bilirubin (0.2-1.0) mg/dL AST (15-37) U/L ALT (12-78) U/L Alkaline Phosphatase (46-116) U/L Total Protein (6.4-8.2) g/dL Albumin (3.4-5.0) g/dL Globulin (2.3-3.5) g/dL Albumin/Globulin Ratio (1.2-2.2) TSH, Ultra Sensitive 5.011 H (0.358-3.740) uIU/mL Urine Color Yellow (YELLOW) Urine Appearance Clear (CLEAR) Urine pH 7.5 (5.0-8.0) Ur Specific [place] 1.020 (1.008-1.030) Urine Protein Negative (NEGATIVE) mg/dL Urine Glucose (UA) Negative (NEGATIVE) mg/dL Urine Ketones Negative (NEGATIVE) mg/dL Urine Occult Blood Trace-intact H (NEGATIVE) Urine Nitrite Negative (NEGATIVE) Urine Bilirubin Negative (NEGATIVE) Urine Urobilinogen 0.2 (0.2-1.0) EU/dL Ur Leukocyte Esterase Negative (NEGATIVE) Urine RBC 0-5 (0-5) Urine WBC Not seen (0-5) Ur Epithelial Cells Not seen Amorphous Sediment Few Urine Bacteria Rare Urine Mucus Not seen Meds: Medications Discontinued Medications Generic Name Dose Route Start Last Admin Trade Name Freq PRN Reason Stop Dose Admin Propofol Confirm 11/30/19 07:21 Diprivan 20 Ml Administered 11/30/19 07:22 Dose 200 mg .ROUTE .STK-MED ONE Sodium Chloride 10 ml 11/30/19 05:29 11/30/19 05:34 Saline Flush FLUSH 10 ml ASDIRECTED PRN Administration Keep Vein Open - Re-Assessments/Exams Free Text/Narrative Re-Assessment/Exam: 11/30/19 07:40 Patient care transferred from Dr. Hanson pending outcome of elective cardioversion. This was successful and the patient recovered from anesthesia without complications. He was discharged and will continue his current medications without change. Return if symptoms recur or he develops other concerns. Departure - Departure Time of Disposition: 07:57 Sepsis Event Note (ED) - Focused Exam Vital Signs: Vital Signs Temp Pulse Resp BP Pulse Ox 11/30/19 05:17 97.5 F 75 15 162/99 H 98
[2019-11-30] MEDS ORDERED: Propofol 200 MG/20 ML SDV ONE (07:21)
--- NOTE | 2019-11-30 07:30 | PCM.PRNOTE ---
- Free Text/Narrative Note: Date of service: 11/30/2019 Proposed procedure: Synchronized cardioversion Preprocedure diagnosis: Symptomatic paroxysmal atrial fibrillation with controlled ventricular response Post procedure diagnosis: Symptomatic paroxysmal atrial fibrillation with controlled ventricular response Indication for procedure: Iván was evaluated today for management atrial fibrillation with symptoms. Synchronized cardioversion was recommended as a primary treatment. Description of the procedure: Iván is currently located day 10 of the emergency room. We have reviewed the potential risks of electrical cardioversion including but not limited to: Superficial skin burden, ineffective treatment, other arrhythmias, reaction to anesthesia medications or potentially asystole. The benefits of the procedure have also been reviewed. At this time the patient wishes to proceed with electrical cardioversion. All necessary pre-procedure information and paperwork has been provided and completed, respectively. The patient was connected to cardioversion pads and monitoring equipment per protocol. Prior to the procedure, a timeout was held with nursing and anesthesia present to confirm the right patient and right procedure. Once appropriate anesthesia was applied the machine was charged to 150 Joules and a synchronized electrical shock was applied. The patient was successfully converted to normal sinus rhythm based on telemetry monitoring. They will remain in their current location until anesthesia has dissipated and the patient is more awake and alert. They will then be discharged to home once medically stable. Anticoagulation should be continued for at least one month post cardioversion. There were no immediate complications noted from the procedure. Post procedure EKG is pending at the time of dictation. Ptear Chavez M.D.
--- NOTE | 2019-11-30 09:06 | CR ---
CHEST: Portable 11/30/2019 at 541 CLINICAL HISTORY:Palpitations, A. fib COMPARISON:2017 FINDINGS: The heart is mildly enlarged. Pulmonary vascularity is normal. There are atherosclerotic changes in the aorta. No infiltrates are seen. There are no pleural effusions Impression: Mild cardiomegaly No acute cardiopulmonary process.
[2019-11-30 09:12] VITALS: BP 142/82; PULSE 42
== END 2019-11-30 07:57 | disposition home or self-care (01) ==
LOC: JP.ED 05:00
DX: I48.0 Paroxysmal atrial fibrillation (principal); H61.21 Impacted cerumen, right ear; Z86.73 Personal history of transient ischemic attack (TIA), and cerebral infarction without residual deficits; E78.00 Pure hypercholesterolemia, unspecified; Z79.01 Long term (current) use of anticoagulants; Z79.899 Other long term (current) drug therapy
CPT/HCPCS: 36415; 71045; 80053; 81001; 83735; 84443; 85025; 85610; 92960; 93005; 99285; J2704; 93010

== ENCOUNTER 2019-12-11 06:25 | Day surgery (SDC) | payer MEDICARE, BC ==
[2019-12-11] MEDS ORDERED: Midazolam 1 MG/ML 2 ML SDV ONE (06:51)
[2019-12-11] MEDS ORDERED: fentaNYL 100 MCG/2 ML SDV ONE (06:51)
[2019-12-11] MEDS ORDERED: Propofol 200 MG/20 ML SDV ONE (06:51)
[2019-12-11] MEDS ORDERED: Dextrose 5%-Lactated Ringers 1,000 ML IV SCH (07:00)
[2019-12-11 10:11] VITALS: BP 155/73; PULSE 38
--- NOTE | 2019-12-26 08:23 | OR ---
DATE OF PROCEDURE: 12/11/2019 SURGEON: Robert Gary MD PREOPERATIVE DIAGNOSIS: Positive Cologuard exam. POSTOPERATIVE DIAGNOSIS: Positive Cologuard exam with: 1. Large (1.5 to 2 cm) polyp adjacent to a field of polypoid tissue of rectum. 2. Small ascending colon polyp. 3. Extensive pandiverticulosis. OPERATIVE PROCEDURE: Flexible colonoscopy with: 1. Polypectomy by snare technique x2 (08305). 2. Removal of additional polypoid tissue with biopsy forceps (70031). 3. Cautery ablation of field of adenomatous disease of rectum ([id number]). ANESTHESIA: IV sedation. INDICATION FOR PROCEDURE: An 79-year-old male presenting with a positive Cologuard examination and is now to undergo a flexible colonoscopy with biopsies and/or polypectomy as indicated. Potential risks of the procedure including bleeding and perforation were discussed, and the patient wishes to proceed. DETAILS OF PROCEDURE: The patient was taken to the operating room and placed in the left lateral decubitus position. IV sedation was administered after which the initial digital rectal exam was performed and was unremarkable. The flexible colonoscope was then passed into the rectum with retroflexion revealing uncomplicated hemorrhoidal columns. The scope was eventually passed to the cecum. The prep was quite good with only a small amount of liquid stool being present. There was extensive diverticulosis throughout the abdominal colon, but this was otherwise uncomplicated. There was a small polyp in the ascending colon, which was excised by means of cautery snare technique. As one pulled the scope back, no additional pathology was seen until the rectal area. Roughly 5 cm in from the dentate line, the patient was noted to have a fairly large polyp measuring 1.5 to 2 cm, and adjacent to this over a field of perhaps 3 to 4 cm adjacent to the polyp, there was friable raised tissue suggestive of adenomatous disease as well. The larger of the polyps was then excised by means of cautery snare technique and grasped with a grasper to be removed in otherwise an intact manner. Some additional friable tissue adjacent to that was then excised by means of a snare technique as well, and then the remaining fragments of this were then excised as much as possible with biopsy forceps. To finish the examination, the entire field of the polypoid disease was extensively cauterized. A portion of this was in the rectal area, where there was a relatively low risk of perforation, and once this entire field appeared to be adequately cauterized, the procedure was then concluded. The patient was taken to the recovery room in satisfactory condition. If this is invasive carcinoma, this is right at the cutoff where one would be able to do a primary anastomosis. If this is short of being malignant, we will continue serial colonoscopies and ablations as indicated until all of the visible disease is absent, and if that is not effectual, then resection would be required at that point. Robert Gary MD /[id number]
== END 2019-12-11 10:20 | disposition home or self-care (01) ==
LOC: JP.SDS 06:25
PROVIDERS: ATTEND Surgery
DX: D12.8 Benign neoplasm of rectum (principal); K57.30 Diverticulosis of large intestine without perforation or abscess without bleeding; K21.9 Gastro-esophageal reflux disease without esophagitis
CPT/HCPCS: 45380; 45385; 45388; 88305; 93005; 93010; J2250; J2704; J3010; J7121

== ENCOUNTER 2020-01-15 08:46 | Day surgery (SDC) | payer MEDICARE, BC ==
[~2020-01-15 08:46] MED LIST changes: -Bupivacaine 0.5% 50 ML MDV ONE; -Lidocaine 1% with EPINEPHrine 1:100,000 50 ML MDV ONE; -Meropenem 500 MG SDV ONE; +Propofol 200 MG/20 ML SDV ONE; +fentaNYL 100 MCG/2 ML SDV ONE
[2020-01-15] MEDS ORDERED: Dextrose 5%-Lactated Ringers 1,000 ML IV SCH (09:30)
[2020-01-15 11:56] VITALS: BP 125/75; PULSE 42
--- NOTE | 2020-01-21 14:13 | OR ---
DATE OF PROCEDURE: 01/15/2020 SURGEON: Robert Gary MD PREOPERATIVE DIAGNOSIS: Polypoid rectal mass. POSTOPERATIVE DIAGNOSIS: Polypoid rectal mass. PROCEDURE PERFORMED: Flexible sigmoidoscopy with: 1. Biopsies of rectal mass. 2. Fulguration of edges of the rectal mass. ANESTHESIA: IV sedation. INDICATION FOR PROCEDURE: This is an 79-year-old male presenting with some rectal bleeding recently. He was noted on recent endoscopy to have a fairly flat polypoid mass in the rectum. This was biopsied and ablated roughly a month ago. 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 Plan is to proceed with re-endoscopy at this time with further biopsy and fulguration of the mass. Potential risks of the procedure including bleeding and perforation were discussed, and the patient wishes to proceed. DETAILS OF PROCEDURE: The patient was taken to the operating room, placed in a left lateral decubitus position. IV sedation was administered, after which the initial digital rectal exam was performed which was unremarkable. The mass while within the finger's reach was not overly palpable as the remainder was very soft mucosal type of lesion. Flexible sigmoidoscope was then passed into the lesion and examined. This was certainly less larger than previously and also had in the way of upward extension that appeared to be flatter and smaller than previously. Some additional biopsies were obtained again trying to ascertain whether or not any changes at this point and the mass was then fulgurated further with electrocautery. This was focused primarily on the edges of the mass so as to further reduce the size somewhat, and at that point procedure was then concluded. At this point, once the area of ablation has healed, this would probably be a lesion amenable to transanal excision and we will discuss that with the patient and likely set things up for early next month. Robert Gary MD /[id number]
== END 2020-01-15 12:00 | disposition home or self-care (01) ==
LOC: JP.SDS 08:46
PROVIDERS: ATTEND Surgery
DX: D12.8 Benign neoplasm of rectum (principal)
CPT/HCPCS: 45331; 88305; 93005; J2704; J3010; J7121; 93010

== ENCOUNTER 2020-02-01 07:23 | Day surgery (SDC) | payer MEDICARE, BC ==
[~2020-02-01 07:23] MED LIST changes: +Bupivacaine 0.5% 50 ML MDV ONE; +Lidocaine 1% with EPINEPHrine 1:100,000 50 ML MDV ONE; -Propofol 200 MG/20 ML SDV ONE; -fentaNYL 100 MCG/2 ML SDV ONE
[2020-02-01] MEDS ORDERED: Acetaminophen 500 MG Tab PO ONE (07:30)
[2020-02-01] MEDS ORDERED: Glycopyrrolate 0.2 MG/ML 5 ML MDV ONE (07:49)
[2020-02-01] MEDS ORDERED: Propofol 200 MG/20 ML SDV ONE (07:49)
[2020-02-01] MEDS ORDERED: Dexamethasone 4 MG/ML SDV ONE (07:49)
[2020-02-01] MEDS ORDERED: Rocuronium 50 MG/5 ML Vial ONE (07:49)
[2020-02-01] MEDS ORDERED: Succinylcholine 200 MG/10 ML MDV ONE (07:49)
[2020-02-01] MEDS ORDERED: Neostigmine Methylsulfate 1 MG/ML 5 ML Syringe ONE (07:49)
[2020-02-01] MEDS ORDERED: Ondansetron 4 MG/2 ML SDV ONE (07:49)
[2020-02-01] MEDS: Dextrose 5%-Lactated Ringers 1,000 ML IV SCH ×3 (07:50→19:11)
[2020-02-01] MEDS ORDERED: Meropenem 500 MG in Sodium Chloride 0.9% 50 ML IV ONE (08:30)
[2020-02-01] MEDS ORDERED: fentaNYL 250 MCG/5 ML SDV ONE (08:35)
[2020-02-01] MEDS ORDERED: Bupivacaine 0.5%/EPINEPHrine 1:200,000 50 ML MDV ONE (10:06)
[2020-02-01] MEDS ORDERED: Acetaminophen/HYDROcodone 325-5 MG Tab PO PRN (11:31)
[2020-02-01] MEDS ORDERED: Acetaminophen 325 MG Tab PO PRN (11:32)
[2020-02-01] MEDS ORDERED: Warfarin 2.5 MG Tab PO SCH (13:00)
[2020-02-01] MEDS: Meropenem 500 MG in Sodium Chloride 0.9% 50 ML IV SCH ×2 (15:27→20:02)
[2020-02-01] MEDS ORDERED: Benzocaine/Cetylpyridinium/Menthol Lozenge MUCMEM PRN (19:09)
[2020-02-01] MEDS: Docusate Sodium 100 MG Cap PO SCH (20:03)
[2020-02-01] MEDS: Sotalol 80 MG Tab PO SCH (20:28)
[2020-02-01] MEDS ORDERED: Latanoprost 0.005% Ophth Soln 2.5 ML Bottle EYEBOTH SCH (21:00)
[2020-02-01] MEDS ORDERED: Simvastatin 20 MG Tab PO SCH (21:00)
[2020-02-02] MEDS: Dextrose 5%-Lactated Ringers 1,000 ML IV SCH (03:12)
[2020-02-02] MEDS: Meropenem 500 MG in Sodium Chloride 0.9% 50 ML IV SCH ×2 (03:12→08:32)
[2020-02-02] MEDS: Sotalol 80 MG Tab PO SCH (09:35)
[2020-02-02] MEDS: Docusate Sodium 100 MG Cap PO SCH (09:35)
[2020-02-02 09:39] VITALS: BP 112/58; PULSE 50
[2020-02-02] MEDS ORDERED: Enoxaparin 100 MG/1 ML Syringe SUBCUT ONE (10:30)
[2020-02-02] MEDS ORDERED: Warfarin 2.5 MG Tab PO ONE (10:30)
--- NOTE | 2020-02-04 08:32 | DISCH ---
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 SECONDARY DIAGNOSES: 1. History of atrial fibrillation with rapid ventricular rate. 2. History of deep venous thrombosis. 3. History of hyperlipidemia. OPERATIVE PROCEDURES: This was done on01/31, transanal excision of the rectal adenomatous polyp. SUMMARY: This is an 79-year-old presenting recently with some rectal bleeding. He had 2 ablation sessions for a low adenomatous polyp. Biopsied showed high-grade dysplasia but not overt cancer. This had gotten down to the point where transanal excision appeared to be the reasonable option. This was performed at that time on 01/31, and he was kept overnight one night to watch for any bleeding issues due to his concurrent anticoagulation. The patient was bridged perioperatively with Lovonox, and will be sent home with Lovonox 120 mg subcu daily x5 days, and will otherwise resume his usual Coumadin dosing. He is instructed to call the [facility] to arrange a followup pro time. Otherwise, the patient will be seeing Dr. Gary at the [facility] on 02/13/2020. We will likely have a flexible sigmoidoscopy in 3 to 4 months to look for any recurrence of the polypoid tissue. If there is some minor recurrences, it should be able to be excised by means of snare and biopsies.
--- NOTE | 2020-02-10 13:21 | OR ---
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 OPERATIVE PROCEDURE: Transanal excision of sessile polypoid tissue of lower rectum ([id number]). ANESTHESIA: General. INDICATIONS FOR PROCEDURE: The patient presents with some persistent polypoid tissue in the low rectum. The plan is to proceed with attempted excision of this with transanal approach. Potential risks including bleeding, infection, possible local or distant tumor recurrence were reviewed, and the patient wishes to proceed. DETAILS OF PROCEDURE: The patient was taken to the operating room after general endotracheal anesthesia was induced, placed in a lithotomy position, and the perianal area prepped and draped with the anal retractor in place. Sutures were placed at 6 points to allow the edges of the visualized polypoid tissue. This was then elevated and underneath this then 2 staple firings using POPPY shari were used, and the very apex of this was then clamped and suture ligated with 4-0 Vicryl stitch. There appeared to be a small amount area of possible polypoid tissue adjacent to this area, which was then also elevated and removed with additional staple firing. At that point, examination revealed no evident obvious persistent tumor or polypoid tissue, and the procedure then concluded. Good hemostasis was evident. The patient was taken to the recovery room in satisfactory condition. Robert Gary MD /[id number]
== END 2020-02-02 10:53 | disposition home or self-care (01) ==
LOC: JP.SDS 07:23 → JP.MS 10:25 → JP.SDS 02-02 10:53
PROVIDERS: ATTEND Surgery
DX: D12.8 Benign neoplasm of rectum (principal); E78.5 Hyperlipidemia, unspecified; I48.0 Paroxysmal atrial fibrillation; Z86.718 Personal history of other venous thrombosis and embolism; Z79.899 Other long term (current) drug therapy; Z90.49 Acquired absence of other specified parts of digestive tract
CPT/HCPCS: 36415; 45171; 85610; A9270; J0330; J1100; J1650; J2185; J2405; J2704; J2710; J3010; J3490; J7050; J7121

== ENCOUNTER 2020-02-04 03:28 | Emergency (ER) | payer MEDICARE, BC ==
[2020-02-04 03:46] VITALS: PULSE 74
[2020-02-04 03:47] VITALS: BP 156/99
--- NOTE | 2020-02-04 04:10 | EDM.PDOC ---
ED HPI GENERAL MEDICAL PROBLEM - General Chief Complaint: Cardiovascular Problem Stated Complaint: AFIB Time Seen by Provider: 02/04/20 04:01 Source of Information: Reports: Patient History Limitations: Reports: No Limitations - History of Present Illness INITIAL COMMENTS - FREE TEXT/NARRATIVE: Patient presents from home concerned about irregular heartbeat patterns tonight. He has a history of intermittent atrial fibrillation and has undergone elective conversions of his heartbeat pattern in the past. He recently had colorectal surgery and was discharged from the hospital 2 days ago. His warfarin had been stopped 5 days prior to the procedure and Lovenox was used as a bridging medication through his time in the hospital and will be continued for a total of 5 days after discharge. Instead of his recently irregular heartbeat pattern, he could tell that extra beats were showing up because of lack of uniform pattern. He denies chest pain or pressure. He was cardioverted for atrial fibrillation on 29 November in this department. There is no breathing change. No nausea or vomiting. The rest of him feels fine other than the awareness of this irregular heartbeat pattern. Onset: Today Duration: Hour(s): (4) Location: Reports: Chest Severity: Mild Improves with: Reports: None Worsens with: Reports: None Associated Symptoms: Reports: Other (Irregular heartbeat pattern.) denies pain Pain Score (Numeric/FACES): 0 - Related Data Allergies Allergy/AdvReac Type Severity Reaction Status Date / Time No Known Allergies Allergy Verified 02/04/20 03:40 Home Meds: Home Meds Simvastatin 40 mg PO BEDTIME 10/15/13 [History] Warfarin [Coumadin] 1.25 mg PO WE 05/04/16 [History] Sotalol HCl [Sotalol] 80 mg PO BID 04/22/18 [History] Latanoprost 1 drop EYEBOTH BEDTIME 05/23/19 [History] Warfarin [Coumadin] 2.5 mg PO SUMOTUTHFRSA 09/12/19 [History] Docusate Sodium [Colace] 100 mg PO BID #30 cap 02/02/20 [Rx] Enoxaparin [Lovenox] 120 mg SQ DAILY #5 syringe 02/02/20 [Rx] Past Medical History HEENT History: Reports: Cataract, Glaucoma, Hard of Hearing Cardiovascular History: Reports: Afib, Blood Clots/VTE/DVT, High Cholesterol, Other (See Below) Other Cardiovascular History: Cardioversion multiple times Respiratory History: Reports: PE Other Respiratory History: 2007 Gastrointestinal History: Reports: Colon Polyp, GERD Genitourinary History: Reports: BPH, Other (See Below) Other Genitourinary History: prostrate cancer Musculoskeletal History: Reports: Other (See Below) Other Musculoskeletal History: fell on ice 2018 and left leg/hip edema since (resolved) Neurological History: Reports: Neuropathy, Peripheral, TIA Hematologic History: Reports: Anticoagulation Therapy Oncologic (Cancer) History: Reports: Prostate - Infectious Disease History Infectious Disease History: Reports: Chicken Pox, Measles, Mumps - Past Surgical History HEENT Surgical History: Reports: Cataract Surgery Cardiovascular Surgical History: Reports: None Respiratory Surgical History: Reports: None GI Surgical History: Reports: Appendectomy, Colonoscopy, EGD, Hernia Repair/Other, Other (See Below) Other GI Surgeries/Procedures: mass removed from colon Male Surgical History: Reports: Prostatectomy Endocrine Surgical History: Reports: None Neurological Surgical History: Reports: None Musculoskeletal Surgical History: Reports: Hip Replacement Oncologic Surgical History: Reports: None Dermatological Surgical History: Reports: None Social & Family History - Family History Cardiac: Reports: CAD, [place] Neurological: Reports: Parkinson's Psychiatric: Reports: Other (See Below) Other Psychiatric Family History: brother related to agent orange Oncologic: Reports: Lung - Tobacco Use Tobacco Use Status *Q: Never Tobacco User - Caffeine Use Caffeine Use: Reports: Coffee, Soda - Recreational Drug Use Recreational Drug Use: No ED ROS GENERAL - Review of Systems Review Of Systems: See Below Constitutional: Reports: No Symptoms HEENT: Reports: No Symptoms Respiratory: Reports: No Symptoms Cardiovascular: Reports: Palpitations Endocrine: Reports: No Symptoms GI/Abdominal: Reports: No Symptoms Musculoskeletal: Reports: No Symptoms ED EXAM, GENERAL - Physical Exam Exam: See Below Free Text/Narrative:: This is a comfortable appearing adult male interviewed in room 3. Exam Limited By: No Limitations General Appearance: Alert, No Apparent Distress Cardiovascular: Regular Rate, Rhythm, Extra Beats Course - Vital Signs Last Recorded V/S: Last Vital Signs Temp 35.3 C L 02/04/20 03:45 Pulse 74 02/04/20 03:45 Resp 15 02/04/20 03:45 BP 156/99 H 02/04/20 03:45 Pulse Ox 99 02/04/20 03:45 - Orders/Labs/Meds Orders: Active Orders 24 hr Category Date Time Status EKG Documentation Completion [RC] ASDIRECTED Care 02/04/20 04:17 Active EKG 12 Lead [EK] Routine Ther 02/04/20 04:17 Ordered Labs: Laboratory Tests 02/04/20 02/04/20 02/04/20 Range/Units 04:35 04:35 04:35 WBC 9.1 (4.5-11.0) K/uL RBC 4.86 (4.30-5.90) M/uL Hgb 14.4 (12.0-15.0) g/dL Hct 43.3 (40.0-54.0) % MCV 89 (80-98) fL MCH 30 (27-31) pg MCHC 33 (32-36) % Plt Count 255 (150-400) K/uL Neut % (Auto) 61 (36-66) % Lymph % (Auto) 25 (24-44) % [place] % (Auto) 9 H (2-6) % Eos % (Auto) 4 (2-4) % Baso % (Auto) 1 (0-1) % PT 16.9 H (9.5-12.0) sec INR 1.56 H (0.80-1.20) Sodium 133 L (140-148) mmol/L Potassium 3.5 L (3.6-5.2) mmol/L Chloride 99 L (100-108) mmol/L Carbon Dioxide 27 (21-32) mmol/L Anion Gap 10.5 (5.0-14.0) mmol/L BUN 13 (7-18) mg/dL Creatinine 1.0 (0.8-1.3) mg/dL Est Cr Clr Drug Dosing 60.83 mL/min Estimated GFR (MDRD) > 60 (>60) Glucose 108 H (74-106) mg/dL Calcium 8.7 (8.5-10.1) mg/dL Troponin I (0.000-0.056) ng/mL 02/04/20 Range/Units 04:35 WBC (4.5-11.0) K/uL RBC (4.30-5.90) M/uL Hgb (12.0-15.0) g/dL Hct (40.0-54.0) % MCV (80-98) fL MCH (27-31) pg MCHC (32-36) % Plt Count (150-400) K/uL Neut % (Auto) (36-66) % Lymph % (Auto) (24-44) % [place] % (Auto) (2-6) % Eos % (Auto) (2-4) % Baso % (Auto) (0-1) % PT (9.5-12.0) sec INR (0.80-1.20) Sodium (140-148) mmol/L Potassium (3.6-5.2) mmol/L Chloride (100-108) mmol/L Carbon Dioxide (21-32) mmol/L Anion Gap (5.0-14.0) mmol/L BUN (7-18) mg/dL Creatinine (0.8-1.3) mg/dL Est Cr Clr Drug Dosing mL/min Estimated GFR (MDRD) (>60) Glucose (74-106) mg/dL Calcium (8.5-10.1) mg/dL Troponin I 0.026 (0.000-0.056) ng/mL - Re-Assessments/Exams Free Text/Narrative Re-Assessment/Exam: 02/04/20 04:22 We discussed that the older of patient gets, the heart is not a perfect time keeper any longer. Although he did not have major surgery, surgery still counts as a stress to the body and that could be the reason that he is noticing the extra heartbeat pattern. We will check an EKG and some laboratory parameters tonight. If everything looks fine he will be discharged home to continue current cares. 02/04/20 05:29 I returned later to review test results which look fine. His INR is 1.5 so it is gradually increasing. He should follow the current medication and post surgery care plans. Return to ER if feeling worse. Departure - Departure Time of Disposition: 05:27 Disposition: Home, Self-Care 01 Clinical Impression: Palpitations Atrial fibrillation Qualifiers: Atrial fibrillation type: paroxysmal Qualified Code(s): I48.0 - Paroxysmal atrial fibrillation Referrals: Ambrocio Garcia MD [Primary Care Provider] - Forms: ED Department Discharge Additional Instructions: Continue current medication plan and follow-up schedule. Because of the atrial fibrillation you may continue to feel the irregular presence of heartbeats. As long as you are not feeling lightheaded or having chest pain/pressure or other symptoms, this should not present a problem for you. Sepsis Event Note (ED) - Evaluation Sepsis Screening Result: No Definite Risk - Focused Exam Vital Signs: Vital Signs Temp Pulse Resp BP Pulse Ox 02/04/20 03:45 35.3 C L 74 15 156/99 H 99 02/04/20 03:43 35.3 C L 74 15 156/99 H 99 - My Orders Last 24 Hours: My Active Orders 02/04/20 04:17 EKG Documentation Completion [RC] ASDIRECTED EKG 12 Lead [EK] Routine - Assessment/Plan Last 24 Hours: My Active Orders 02/04/20 04:17 EKG Documentation Completion [RC] ASDIRECTED EKG 12 Lead [EK] Routine
== END 2020-02-04 05:33 | disposition home or self-care (01) ==
LOC: JP.ED 03:28
DX: I48.0 Paroxysmal atrial fibrillation (principal); E78.00 Pure hypercholesterolemia, unspecified; Z79.899 Other long term (current) drug therapy; Z79.01 Long term (current) use of anticoagulants
CPT/HCPCS: 36415; 80048; 84484; 85025; 85610; 93005; 93010; 99285-25

== ENCOUNTER 2020-05-01 11:26 | Emergency (ER) | payer MEDICARE, BC ==
[2020-05-01] MEDS ORDERED: Lidocaine 1% with EPINEPHrine 1:100,000 50 ML MDV INFILT ONE (11:30)
[2020-05-01 11:42] VITALS: BP 151/67; PULSE 55
--- NOTE | 2020-05-01 11:57 | EDM.PDOC ---
ED HPI GENERAL MEDICAL PROBLEM - General Chief Complaint: Head Injury Stated Complaint: HEAD CUT Time Seen by Provider: 05/01/20 11:28 Source of Information: Reports: Patient, Family History Limitations: Reports: No Limitations - History of Present Illness INITIAL COMMENTS - FREE TEXT/NARRATIVE: Demetrius is an 79-year-old male presenting to the ED for evaluation of injuries related to falling on the ice. The patient is anticoagulated with warfarin for atrial fibrillation with an INR usually between 2.5 and 3.0. He struck his head on the ice causing a 3.3 cm laceration over the left parietal scalp. He had no loss of consciousness and denies any headache, vision changes, numbness or tingling, or weakness since the fall. He denies any nausea or vomiting. He did sustain some injuries to his right upper extremity at the wrist and shoulder, however, there is no significant tenderness with palpation or deformity and the patient has full range of motion without difficulty. - Related Data Allergies Allergy/AdvReac Type Severity Reaction Status Date / Time No Known Allergies Allergy Verified 05/01/20 11:39 Home Meds: Home Meds Simvastatin 40 mg PO BEDTIME 10/15/13 [History] Warfarin [Coumadin] 1.25 mg PO WE 05/04/16 [History] Sotalol HCl [Sotalol] 80 mg PO BID 04/22/18 [History] Latanoprost 1 drop EYEBOTH BEDTIME 05/23/19 [History] Warfarin [Coumadin] 2.5 mg PO SUMOTUTHFRSA 09/12/19 [History] Docusate Sodium [Colace] 100 mg PO BID #30 cap 02/02/20 [Rx] Past Medical History HEENT History: Reports: Cataract, Glaucoma, Hard of Hearing Cardiovascular History: Reports: Afib, Blood Clots/VTE/DVT, High Cholesterol, Other (See Below) Other Cardiovascular History: Cardioversion multiple times Respiratory History: Reports: PE Other Respiratory History: 2006 Gastrointestinal History: Reports: Colon Polyp, GERD Genitourinary History: Reports: BPH, Other (See Below) Other Genitourinary History: prostrate cancer Musculoskeletal History: Reports: Other (See Below) Other Musculoskeletal History: fell on ice 2018 and left leg/hip edema since (resolved) Neurological History: Reports: Neuropathy, Peripheral, TIA Hematologic History: Reports: Anticoagulation Therapy Oncologic (Cancer) History: Reports: Prostate - Infectious Disease History Infectious Disease History: Reports: Chicken Pox, Measles, Mumps - Past Surgical History Head Surgeries/Procedures: Reports: None HEENT Surgical History: Reports: Cataract Surgery, Retinal Cardiovascular Surgical History: Reports: None Respiratory Surgical History: Reports: None GI Surgical History: Reports: Appendectomy, Colonoscopy, EGD, Hernia Repair/Other, Other (See Below) Other GI Surgeries/Procedures: mass removed from colon Male Surgical History: Reports: Prostatectomy Other Male Surgeries/Procedures: 2009 Endocrine Surgical History: Reports: None Neurological Surgical History: Reports: None Musculoskeletal Surgical History: Reports: Hip Replacement Other Musculoskeletal Surgeries/Procedures:: rigt and left Oncologic Surgical History: Reports: None Dermatological Surgical History: Reports: None Social & Family History - Family History Cardiac: Reports: CAD, [place] Neurological: Reports: Parkinson's Psychiatric: Reports: Other (See Below) Other Psychiatric Family History: brother related to agent orange Oncologic: Reports: Lung - Tobacco Use Tobacco Use Status *Q: Never Tobacco User Second Hand Smoke Exposure: No - Caffeine Use Caffeine Use: Reports: Coffee - Alcohol Use Days Per Week of Alcohol Use: 7 Number of Drinks Per Day: 1 Total Drinks Per Week: 7 - Recreational Drug Use Recreational Drug Use: No ED ROS GENERAL - Review of Systems Review Of Systems: See Below Constitutional: Reports: No Symptoms HEENT: Reports: Other (Laceration left parietal scalp) Respiratory: Reports: No Symptoms Cardiovascular: Reports: No Symptoms Endocrine: Reports: No Symptoms GI/Abdominal: Reports: No Symptoms : Reports: No Symptoms Musculoskeletal: Reports: Shoulder Pain (Mild left shoulder pain and left wrist pain. Bruising on the left wrist and hand.) Skin: Reports: Bruising (Left wrist and hand laterally.), Wound (Abrasion left hand) Neurological: Denies: Confusion, Dizziness, Headache, Numbness, Tingling, Difficulty Walking, Weakness Hematologic/Lymphatic: Reports: No Symptoms Immunologic: Reports: No Symptoms ED EXAM, HEAD INJURY - Physical Exam Exam: See Below Exam Limited By: No Limitations General Appearance: Alert, WD/WN, No Apparent Distress Head: Normocephalic, Scalp Lacerations (Left parietal scalp measuring 3.4 cm. This goes through muscle layer to the skull.). No: Ware's Sign, Facial Abrasions, Facial Ecchymosis, Facial Swelling, Facial Tenderness Nexus Criteria: No: Posterior, Midline Cervical Tenderness, Evidence of Intoxication, Altered Level of Consciousness, Focal Neurological Deficit, Painful Distraction Injuries Eyes: Bilateral Eye: EOMI, PERRL Ears: Normal External Exam, Normal Canal, Hearing Grossly Normal Nose: Normal Inspection, Normal Mucousa, No Blood Throat/Mouth: Normal Inspection, Normal Lips, Normal Oropharynx, Normal Voice Neck: Non-Tender, Full Range of Motion, Normal Alignment, Normal Inspection Back Exam: Normal Inspection, Full Range of Motion Extremities: Normal Inspection, Normal Range of Motion, Other (Mild tenderness at the left shoulder without reduction in range of motion. Mild tenderness on the lateral hand and wrist without deformity or reduction in range of motion.) Neurologic: No Motor/Sensory Deficits, Alert, Normal Mood/Affect, Oriented x 3 - Haritha Coma Score Best Eye Response (Haritha): (4) Open Spontaneously Best Verbal Response (Stryker): (5) Oriented Best Motor Response (Stryker): (6) Obeys Commands ED LACERATION/WOUND & ANA PROC - Laceration/Wound Repair Left Head Appearance: Muscle, Clean Distal NVT: Neuro & Vascular Intact Anesthetic Type: Local Local Anesthesia - Lidocaine (Xylocaine): 1% with EPI Local Anesthetic Volume: 2cc Skin Prep: Other (Tap water) Exploration/Debridement/Repair: Wound Explored, In a Bloodless Field, Explored to Base Closed with: Sutures Suture Size: 4-0 # of Sutures: 7 Suture Type: Nylon, Interrupted Suture Size: 4-0 # of Sutures: 2 Repaired with: Vicryl (Inverted interrupted) Drain Placement: No Tetanus Status Addressed: Yes (Patient was boosted in 2016 and is up-to-date.) Complications: No Course - Vital Signs Last Recorded V/S: Last Vital Signs Temp 35.7 C L 05/01/20 11:45 Pulse 55 L 05/01/20 11:45 Resp 16 05/01/20 11:45 BP 151/67 H 05/01/20 11:45 Pulse Ox 90 L 05/01/20 11:45 - Orders/Labs/Meds Orders: Active Orders 24 hr Category Date Time Status Head wo Cont [CT] Stat Exams 05/01/20 11:29 Ordered Labs: Laboratory Tests 05/01/20 05/01/20 Range/Units 11:49 11:49 WBC 10.4 (4.5-11.0) K/uL RBC 4.54 (4.30-5.90) M/uL Hgb 13.9 (12.0-15.0) g/dL Hct 42.2 (40.0-54.0) % MCV 93 (80-98) fL MCH 31 (27-31) pg MCHC 33 (32-36) % Plt Count 229 (150-400) K/uL PT 18.6 H (9.5-12.0) sec INR 1.72 H (0.80-1.20) Meds: Medications Discontinued Medications Generic Name Dose Route Start Last Admin Trade Name Freq PRN Reason Stop Dose Admin Bacitracin 1 dose 05/01/20 12:02 05/01/20 12:07 Bacitracin Oint 1 Gm TOP 05/01/20 12:03 1 dose ONETIME ONE Administration Lidocaine/Epinephrine 3 ml 05/01/20 11:30 05/01/20 11:47 Xylocaine 1% With Epinephrine 1:100,000 INFILT 05/01/20 11:31 3 ml ONETIME ONE Administration - Radiology Interpretation Free Text/Narrative:: CT of the head without contrast shows significant amount of age appropriate atrophy with slight enlargement of the ventricles and sulci. There is no evidence for any acute intracranial abnormalities including hemorrhage, mass- effect, or shift. Evaluation of the skull fails to demonstrate any osseous abnormalities including fracture. - Re-Assessments/Exams Free Text/Narrative Re-Assessment/Exam: 05/01/20 12:12 I reviewed the labs showing a normal CBC and the patient's INR is 1.72 today. Departure - Departure Time of Disposition: 12:25 Disposition: Home, Self-Care 01 Condition: Good Clinical Impression: Chronic anticoagulation Fall due to ice or snow Qualifiers: Encounter type: initial encounter Qualified Code(s): W00.9XXA - Unspecified fall due to ice and snow, initial encounter Laceration of scalp Qualifiers: Encounter type: initial encounter Qualified Code(s): S01.01XA - Laceration without foreign body of scalp, initial encounter Head injury, acute Qualifiers: Encounter type: initial encounter Qualified Code(s): S09.90XA - Unspecified injury of head, initial encounter Contusion of left upper extremity Qualifiers: Encounter type: initial encounter Qualified Code(s): S40.022A - Contusion of left upper arm, initial encounter - Discharge Information *PRESCRIPTION DRUG MONITORING PROGRAM REVIEWED*: Not Applicable *COPY OF PRESCRIPTION DRUG MONITORING REPORT IN PATIENT JING: Not Applicable Instructions: Contusion, Laceration Care, Adult, [id number], Sutures, [place], or Adhesive Wound Closure, [id number] Referrals: Ambrocio Garcia MD [Primary Care Provider] - Forms: ED Department Discharge Care Plan Goals: Your INR today was 1.72. You may have a small amount of bleeding from the suture repair. I recommend putting a light coating of triple antibiotic ointment on the wound twice daily which will not only minimize the scarring but also help the wound heal. You should keep the wound clean and dry for the next 24 hours until the scab forms after which you can shower and immerse your head in water. Your sutures will need to be removed in 5 to 7 days which can be done at your primary care provider's office. You may take Tylenol for your wrist and shoulder pain. Consider returning to the ER should you develop any significant headache, vision changes, new onset of numbness or tingling, or weakness. It was a pleasure taking care of you today. If you have any questions feel free to reach out to us for answers. Sepsis Event Note (ED) - Evaluation Sepsis Screening Result: No Definite Risk - Focused Exam Vital Signs: Vital Signs Temp Pulse Resp BP Pulse Ox 05/01/20 11:45 35.7 C L 55 L 16 151/67 H 90 L 05/01/20 11:40 35.7 C L 55 L 16 151/67 H 90 L - Problem List & Annotations (1) Chronic anticoagulation SNOMED Code(s): 163691192 Code(s): Z79.01 - RETIREMENT (CURRENT) USE OF ANTICOAGULANTS Status: Chronic Priority: Medium Current Visit: Yes (2) Contusion of left upper extremity SNOMED Code(s): 64911524 Code(s): S40.022A - CONTUSION OF LEFT UPPER ARM, INITIAL ENCOUNTER Status: Acute Priority: Medium Current Visit: Yes Qualifiers: Encounter type: initial encounter Qualified Code(s): S40.022A - Contusion of left upper arm, initial encounter (3) Fall due to ice or snow SNOMED Code(s): 177191767 Code(s): W00.9XXA - UNSPECIFIED FALL DUE TO ICE AND SNOW, INITIAL ENCOUNTER Status: Acute Priority: Medium Current Visit: Yes Qualifiers: Encounter type: initial encounter Qualified Code(s): W00.9XXA - Unspecified fall due to ice and snow, initial encounter (4) Head injury, acute SNOMED Code(s): 23758020, 19840197 Code(s): S09.90XA - UNSPECIFIED INJURY OF HEAD, INITIAL ENCOUNTER Status: Acute Priority: High Current Visit: Yes Qualifiers: Encounter type: initial encounter Qualified Code(s): S09.90XA - Unspecified injury of head, initial encounter (5) Laceration of scalp SNOMED Code(s): 462206671 Code(s): S01.01XA - LACERATION WITHOUT FOREIGN BODY OF SCALP, INITIAL ENCOUNTER Status: Acute Priority: High Current Visit: Yes Qualifiers: Encounter type: initial encounter Qualified Code(s): S01.01XA - Laceration without foreign body of scalp, initial encounter - Problem List Review Problem List Initiated/Reviewed/Updated: Yes - My Orders Last 24 Hours: My Active Orders 05/01/20 11:29 Head wo Cont [CT] Stat - Assessment/Plan Last 24 Hours: My Active Orders 05/01/20 11:29 Head wo Cont [CT] Stat
[2020-05-01] MEDS ORDERED: Bacitracin Oint 1 GM U/D Packet TOP ONE (12:02)
--- NOTE | 2020-05-01 12:30 | CT ---
Head wo Cont CLINICAL HISTORY: Head trauma, on blood thinners COMPARISON: 2006 TECHNIQUE: Transverse scans were obtained from the base of the skull through the vertex without IV contrast on a multislice, multidetector CT scanner. Auto dosage reduction and iterative reconstruction techniques employed. FINDINGS: No focal abnormal parenchymal densities are identified. There is no mass effect, hemorrhage, or extraaxial collection. The basal cisterns and sulci over the convexities are prominent. The ventricles are prominent. No calvarial fracture or lesion is seen. There is moderate ethmoid and left frontal sinusitis. IMPRESSION: No acute intracranial process Frontal and ethmoid sinusitis Moderate atrophy
== END 2020-05-01 12:33 | disposition home or self-care (01) ==
LOC: JP.ED 11:26
DX: S01.01XA Laceration without foreign body of scalp, initial encounter (principal); I48.91 Unspecified atrial fibrillation; E78.00 Pure hypercholesterolemia, unspecified; G62.9 Polyneuropathy, unspecified; Z79.01 Long term (current) use of anticoagulants; Z86.711 Personal history of pulmonary embolism; Z79.899 Other long term (current) drug therapy; Z86.73 Personal history of transient ischemic attack (TIA), and cerebral infarction without residual deficits; W00.9XXA Unspecified fall due to ice and snow, initial encounter
CPT/HCPCS: 12032; 36415; 70450; 70450-26; 85027; 85610; 99284-25

== ENCOUNTER → 2020-05-27 | Day surgery (SDC) | payer MEDICARE, BC ==
[~2020-05-27] MED LIST changes: +Acetaminophen 500 MG Tab PO ONE; +Dexamethasone 4 MG/ML SDV ONE; +Dextrose 5%-Lactated Ringers 1,000 ML IV SCH; +Glycopyrrolate 0.2 MG/ML 5 ML MDV ONE; +Meropenem 500 MG in Sodium Chloride 0.9% 50 ML IV ONE; +Neomycin/Polymyxin B 1 ML, Sodium Chloride 0.9% 750 ML IRR ONE; +Neostigmine Methylsulfate 1 MG/ML 5 ML Syringe ONE; +Ondansetron 4 MG/2 ML SDV ONE; +Propofol 200 MG/20 ML SDV ONE; +Rocuronium 50 MG/5 ML Vial ONE; +Succinylcholine 200 MG/10 ML MDV ONE; +fentaNYL 250 MCG/5 ML SDV ONE
[2020-05-27 12:28] VITALS: BP 149/85; PULSE 44
--- NOTE | 2020-06-02 07:45 | OR ---
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 POSTOPERATIVE DIAGNOSIS: Small amount of nodular-appearing tissue posteriorly and right posterior aspect of the low rectum of uncertain nature. OPERATIVE PROCEDURE: Flexible sigmoidoscopy with: 1. Excision of possible polypoid tumor by snare technique ([id number]). 2. Excision of additional areas of small nodular areas of tissue low rectum by cold biopsy forceps ([id number]). ANESTHESIA: General endotracheal anesthetic. INDICATIONS FOR PROCEDURE: This is an 79-year-old who in March underwent a transanal excision of a broad-based rectal mass which was adenomatous tissue with high-grade dysplasia. He is here for followup flexible sigmoidoscopy with biopsies and re-excision as indicated. Potential risks including bleeding and infection, possible need for additional treatment based on today's findings were gone over and the patient wishes to proceed. DETAILS OF PROCEDURE: The patient was taken to the operating room, placed in a supine position. General endotracheal anesthetic was then induced, and the patient was converted to a lithotomy position. Initial digital rectal exam confirmed the posterior lateral staple line. No nodular tissue per se could be palpated. Flexible sigmoidoscope was then passed. The prep was good with there being no stool in the area with the patient having received a preoperative enema. Near the staple lines, there were some tiny areas of certainly nodular tissue, one of these would be amenable to removal by means of snare technique and thin layer of this tissue was removed and sent for histologic evaluation. Some additional smaller nodularity which may very well be granulation tissue versus adenomatous tissue were also then biopsied by cold biopsy forceps, sent for histologic evaluation. Minimal bleeding was noted at this point. The procedure was then concluded. The patient was taken to the recovery room in satisfactory condition. We will notify the patient regarding the biopsy results and then plan further followup or treatment as needed. Robert Gary MD /[id number]
== END ==
LOC: JP.SDS 07:54
PROVIDERS: ATTEND Surgery
DX: D12.8 Benign neoplasm of rectum (principal)
CPT/HCPCS: 36415; 80053; 83735; 84100; 85027; 85610; 88305; A9270-GY; J0330; J1100; J2185; J2405; J2704; J2710; J3010; J3490; J7121

== ENCOUNTER 2020-07-28 09:35 | Emergency (ER) | payer MEDICARE, BC ==
--- NOTE | 2020-07-28 10:17 | EDM.PDOC ---
ED HPI GENERAL MEDICAL PROBLEM - General Chief Complaint: Cardiovascular Problem Stated Complaint: AFIB ACTING UP Time Seen by Provider: 07/28/20 10:08 Source of Information: Reports: Patient, Family, RN Notes Reviewed History Limitations: Reports: No Limitations - History of Present Illness INITIAL COMMENTS - FREE TEXT/NARRATIVE: 80-year-old gentleman presents emergency department a complaint of palpitations, he has a known history of atrial fibrillation is anticoagulated on Coumadin he states he awoke this morning he felt like his atrial fibrillation was not right and can feel palpitations. No other symptoms at this time shortness of breath nausea vomiting chest pain - Related Data Allergies Allergy/AdvReac Type Severity Reaction Status Date / Time No Known Allergies Allergy Verified 07/28/20 09:52 Home Meds: Home Meds Simvastatin 40 mg PO BEDTIME 10/15/13 [History] Warfarin [Coumadin] 3.5 mg PO ASDIRECTED 05/04/16 [History] Sotalol HCl [Sotalol] 80 mg PO BID 04/22/18 [History] Latanoprost 1 drop EYEBOTH BEDTIME 05/23/19 [History] Warfarin [Coumadin] 3.75 mg PO ASDIRECTED 09/12/19 [History] Docusate Sodium [Colace] 100 mg PO DAILY 07/28/20 [History] Past Medical History HEENT History: Reports: Cataract, Glaucoma, Hard of Hearing Cardiovascular History: Reports: Afib, Blood Clots/VTE/DVT, High Cholesterol, Other (See Below) Other Cardiovascular History: Cardioversion multiple times Respiratory History: Reports: PE Other Respiratory History: 2006 Gastrointestinal History: Reports: Colon Polyp, GERD Genitourinary History: Reports: BPH, Other (See Below) Other Genitourinary History: prostrate cancer Musculoskeletal History: Reports: Other (See Below) Other Musculoskeletal History: fell on ice 2018 and left leg/hip edema since (resolved) Neurological History: Reports: Neuropathy, Peripheral, TIA Hematologic History: Reports: Anticoagulation Therapy Oncologic (Cancer) History: Reports: Prostate - Infectious Disease History Infectious Disease History: Reports: Chicken Pox, Measles, Mumps - Past Surgical History Head Surgeries/Procedures: Reports: None HEENT Surgical History: Reports: Cataract Surgery, Retinal Cardiovascular Surgical History: Reports: None Respiratory Surgical History: Reports: None GI Surgical History: Reports: Appendectomy, Colonoscopy, EGD, Hernia Repair/Other, Other (See Below) Other GI Surgeries/Procedures: mass removed from colon Male Surgical History: Reports: Prostatectomy Other Male Surgeries/Procedures: 2010 Endocrine Surgical History: Reports: None Neurological Surgical History: Reports: None Musculoskeletal Surgical History: Reports: Hip Replacement Other Musculoskeletal Surgeries/Procedures:: rigt and left Oncologic Surgical History: Reports: None Dermatological Surgical History: Reports: None Social & Family History - Family History Cardiac: Reports: CAD, [place] Neurological: Reports: Parkinson's Psychiatric: Reports: Other (See Below) Other Psychiatric Family History: brother related to agent orange Oncologic: Reports: Lung - Tobacco Use Tobacco Use Status *Q: Never Tobacco User Second Hand Smoke Exposure: No - Caffeine Use Caffeine Use: Reports: Coffee - Alcohol Use Days Per Week of Alcohol Use: 7 Number of Drinks Per Day: 2 Total Drinks Per Week: 14 - Recreational Drug Use Recreational Drug Use: No ED ROS GENERAL - Review of Systems Review Of Systems: See Below Constitutional: Reports: No Symptoms Respiratory: Reports: No Symptoms Cardiovascular: Reports: Palpitations GI/Abdominal: Reports: No Symptoms ED EXAM, GENERAL - Physical Exam Exam: See Below Exam Limited By: No Limitations General Appearance: Alert, WD/WN, No Apparent Distress Respiratory/Chest: No Respiratory Distress, Lungs Clear, Normal Breath Sounds, No Accessory Muscle Use, Chest Non-Tender Cardiovascular: No Murmur, Irregularly Irregular (With PVCs) ED CARDIOLOGY PROCEDURES - Cardioversion Time of Cardioversion: 12:08 Indication: Other (Atrial fibrillation with PVCs chest discomfort and palpitations) Patient Counseled: Yes Informed Consent Obtained: Yes Preparation: IV Access, Airway Management Equipment, Supplemental Oxygen, Other (Anesthesia) Pre-Procedure Sedation: Propofol Cardioversion Energy: 200J Sync Mode: Biphasic Successful: Yes Number of Attempts: 1 Patient Condition Post Cardioversion: Improved Post Cardioversion EKG Reviewed: Yes #1 Interpretation EKG Date: 07/28/20 Time: 09:49 Rhythm: A-Fib [place]: LAD-Left [place] Deviation P-Wave: Absent QRS: Normal ST-T: Normal QT: Normal Comparison: No Change #2 Interpretation EKG Date: 07/28/20 Rhythm: NSR [place]: LAD-Left [place] Deviation P-Wave: Present QRS: Normal ST-T: Normal QT: Normal Comparison: Change From Previous EKG Course - Vital Signs Last Recorded V/S: Last Vital Signs Temp 97.7 F 07/28/20 09:57 Pulse 45 L 07/28/20 12:46 Resp 11 L 07/28/20 12:46 BP 128/82 07/28/20 12:46 Pulse Ox 97 07/28/20 12:46 - Orders/Labs/Meds Orders: Active Orders 24 hr Category Date Time Status Cardiac Monitoring [RC] .As Directed Care 07/28/20 10:13 Active EKG Documentation Completion [RC] ASDIRECTED Care 07/28/20 10:14 Active EKG Documentation Completion [RC] ASDIRECTED Care 07/28/20 12:21 Active Sodium Chloride 0.9% [Normal Saline] 1,000 ml Med 07/28/20 12:00 Active IV ASDIRECTED EKG 12 Lead [EK] Stat Ther 07/28/20 10:14 Ordered EKG 12 Lead [EK] Stat Ther 07/28/20 12:21 Ordered Medication Orders Sodium Chloride (Normal Saline) 1,000 mls @ 500 mls/hr IV ASDIRECTED [facility] Last Admin: 07/28/20 12:20 Dose: 500 mls/hr Documented by: DIVYA Labs: Laboratory Tests 07/28/20 07/28/20 07/28/20 Range/Units 10:27 10:27 10:27 WBC 8.8 (4.5-11.0) K/uL RBC 4.73 (4.30-5.90) M/uL Hgb 14.8 (12.0-15.0) g/dL Hct 43.2 (40.0-54.0) % MCV 91 (80-98) fL MCH 31 (27-31) pg MCHC 34 (32-36) % Plt Count 249 (150-400) K/uL Neut % (Auto) 64 (36-66) % Lymph % (Auto) 22 L (24-44) % [place] % (Auto) 8 H (2-6) % Eos % (Auto) 5 H (2-4) % Baso % (Auto) 1 (0-1) % PT 31.8 H (9.5-12.0) sec INR 2.98 H (0.80-1.20) Sodium 138 L (140-148) mmol/L Potassium 4.3 (3.6-5.2) mmol/L Chloride 103 (100-108) mmol/L Carbon Dioxide 27 (21-32) mmol/L Anion Gap 12.3 (5.0-14.0) mmol/L BUN 12 (7-18) mg/dL Creatinine 1.1 (0.8-1.3) mg/dL Est Cr Clr Drug Dosing 54.38 mL/min Estimated GFR (MDRD) > 60 (>60) Glucose 98 (74-106) mg/dL Calcium 8.6 (8.5-10.1) mg/dL Phosphorus 2.4 L (2.5-4.9) mg/dL Magnesium 1.8 (1.8-2.4) mg/dL Troponin I < 0.017 (0.000-0.056) ng/mL Meds: Medications Generic Name Dose Route Start Last Admin Trade Name Freq PRN Reason Stop Dose Admin Sodium Chloride 1,000 mls @ 500 mls/hr 07/28/20 12:00 07/28/20 12:20 Normal Saline IV 500 mls/hr ASDIRECTED KYLIE Administration Discontinued Medications Generic Name Dose Route Start Last Admin Trade Name Freq PRN Reason Stop Dose Admin Propofol Confirm 07/28/20 12:16 Propofol 200 Mg/20 Ml Sdv Administered 07/28/20 12:17 Dose 200 mg .ROUTE .STK-MED ONE Departure - Departure Time of Disposition: 13:04 Disposition: Home, Self-Care 01 Condition: Fair Clinical Impression: Atrial fibrillation Qualifiers: Atrial fibrillation type: paroxysmal Qualified Code(s): I48.0 - Paroxysmal atrial fibrillation Instructions: Atrial Fibrillation, [id number] Referrals: Ambrocio Garcia MD [Primary Care Provider] - Forms: ED Department Discharge Additional Instructions: Continue with your regular medications, keep your follow-up appointment with cardiology call return to the emergency department worsening of symptoms Sepsis Event Note (ED) - Evaluation Sepsis Screening Result: No Definite Risk - Focused Exam Vital Signs: Vital Signs Temp Pulse Resp BP Pulse Ox 07/28/20 12:46 45 L 11 L 128/82 97 07/28/20 12:40 44 L 16 124/68 98 07/28/20 12:36 45 L 17 123/76 97 07/28/20 12:30 44 L 15 117/73 94 L 07/28/20 12:25 41 L 15 122/72 97 07/28/20 12:20 47 L 14 113/73 96 07/28/20 12:15 49 L 20 119/76 96 07/28/20 12:10 55 L 18 114/73 100 07/28/20 12:05 56 L 17 133/84 94 L 07/28/20 12:03 62 11 L 143/93 H 98 07/28/20 11:58 75 15 157/85 H 98 07/28/20 11:42 97 16 139/86 97 07/28/20 11:12 66 14 132/84 98 07/28/20 10:27 73 16 128/85 96 07/28/20 10:01 70 15 131/96 H 98 07/28/20 09:57 97.7 F 92 16 151/106 H 98 07/28/20 09:42 97.7 F 92 16 151/106 H 98 - My Orders Last 24 Hours: My Active Orders 07/28/20 10:13 Cardiac Monitoring [RC] .As Directed 07/28/20 10:14 EKG Documentation Completion [RC] ASDIRECTED EKG 12 Lead [EK] Stat 07/28/20 12:00 Sodium Chloride 0.9% [Normal Saline] 1,000 ml IV ASDIRECTED 07/28/20 12:21 EKG Documentation Completion [RC] ASDIRECTED EKG 12 Lead [EK] Stat - Assessment/Plan Last 24 Hours: My Active Orders 07/28/20 10:13 Cardiac Monitoring [RC] .As Directed 07/28/20 10:14 EKG Documentation Completion [RC] ASDIRECTED EKG 12 Lead [EK] Stat 07/28/20 12:00 Sodium Chloride 0.9% [Normal Saline] 1,000 ml IV ASDIRECTED 07/28/20 12:21 EKG Documentation Completion [RC] ASDIRECTED EKG 12 Lead [EK] Stat Plan: Assessment Acuity = acute Site and laterality = atrial fibrillation status post electrical cardioversion Etiology = unknown Manifestations = none Location of injury = Home Lab values = CBC, CMP, troponin magnesium phosphorus all within normal limits initial EKG demonstrates atrial fibrillation EKG postconversion reveals sinus rhythm Plan Continue with regular medications keep follow-up appointments with cardiology next month This note was dictated using [employer] voice recognition software please call with any questions on syntax or grammar.
[2020-07-28] MEDS ORDERED: Sodium Chloride 0.9% 1,000 ML IV SCH (12:00)
[2020-07-28] MEDS ORDERED: Propofol 200 MG/20 ML SDV ONE (12:16)
[2020-07-28 13:10] VITALS: PULSE 45
[2020-07-28 13:11] VITALS: BP 129/73
== END 2020-07-28 13:13 | disposition home or self-care (01) ==
LOC: JP.ED 09:35
DX: I48.0 Paroxysmal atrial fibrillation (principal); E78.00 Pure hypercholesterolemia, unspecified; Z86.718 Personal history of other venous thrombosis and embolism; Z86.711 Personal history of pulmonary embolism; Z79.01 Long term (current) use of anticoagulants; Z79.899 Other long term (current) drug therapy
CPT/HCPCS: 36415; 80048; 83735; 84100; 84484; 85025; 85610; 92960; 93005; 99284; 99285; J2704; J7030

== ENCOUNTER 2020-10-27 06:31 | Day surgery (SDC) | payer MEDICARE, BC ==
[2020-10-27] MEDS ORDERED: fentaNYL 100 MCG/2 ML SDV ONE (07:07)
[2020-10-27] MEDS ORDERED: Propofol 200 MG/20 ML SDV ONE (07:07)
[2020-10-27] MEDS ORDERED: Dextrose 5%-Lactated Ringers 1,000 ML IV SCH (07:30)
[2020-10-27] MEDS ORDERED: Meropenem 500 MG in Sodium Chloride 0.9% 50 ML IV ONE (07:45)
[2020-10-27 09:25] VITALS: BP 141/79; PULSE 41
--- NOTE | 2020-11-03 13:43 | OR ---
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 POSTOPERATIVE DIAGNOSIS: Possible persistent adenomatous polypoid tissue at the distal most rectum. OPERATIVE PROCEDURES: Flexible sigmoidoscopy with: 1. Multiple biopsies of previously noted area of polypoid tissue (09034). 2. Cautery ablation of possible polypoid tissue field of lower rectum (99958). ANESTHESIA: Local plus IV sedation. INDICATION FOR PROCEDURE: This is an 80-year-old who a little over a year ago was noted to have some rectal bleeding and had a broad area of polypoid tissue in a more or less field. This contained some polypoid tissue with high-grade dysplasia but no carcinoma in situ or invasive carcinoma at a point being identified. The patient has undergone some ablations as well as a transanal excision of the area. Once that became more contained after initial episodes of ablation and is now to undergo a followup flexible sigmoidoscopy with biopsies and probable re-ablation of the field too as best as possible to avoid or prevent progression of the polypoid tissue. Potential risks including bleeding and perforation were discussed, and the patient wishes to proceed. DETAILS OF PROCEDURE: The patient was taken to the operating room and placed in a left lateral decubitus position. IV sedation was administered, after which the initial digital rectal exam was performed. At this point, the area would be quite soft with no overly palpable abnormality noted in the area of the previously ablated field. Upon entering the region, 2 photographs were obtained, one somewhat below the previous staple line and one more or less focused on the previous staple line. All these areas had some patchy reddened areas of uncertain nature. This certainly could be mucosa versus some remaining polypoid tissue. Two sets of biopsies were obtained, one from the area of somewhat below the staple line and then a second set more or less along the edges of the staple line. These were then sent separately for pathologic review. The entire area was then carefully ablated with electrocautery until the entire field at that point was what appeared to be a well cauterized surface, and at that point, no problems were evident. Procedure was concluded. The patient was seen later in the ACU area and was feeling good with no evident complications. He will ultimately be sent home with instructions given regarding his anticoagulation status, and we will follow him with regard to the findings and the timing for additional followup flexible sigmoidoscopy. Robert Gary MD /[id number]
== END 2020-10-27 09:45 | disposition home or self-care (01) ==
LOC: JP.SDS 06:31
PROVIDERS: ATTEND Surgery
DX: D12.7 Benign neoplasm of rectosigmoid junction (principal); K62.89 Other specified diseases of anus and rectum; I48.91 Unspecified atrial fibrillation
CPT/HCPCS: 45331; 45346; 88305; J2185; J2704; J3010; J7121

== ENCOUNTER 2020-10-28 14:48 | Inpatient (IN) | payer MEDICARE, BC ==
--- NOTE | 2020-10-28 15:48 | EDM.PDOC ---
ED HPI GENERAL MEDICAL PROBLEM - General Chief Complaint: Abdominal Pain Stated Complaint: REFERRED BY FOR EVAL Time Seen by Provider: 10/28/20 15:42 Source of Information: Reports: Patient History Limitations: Reports: No Limitations - History of Present Illness INITIAL COMMENTS - FREE TEXT/NARRATIVE: 80-year-old gentleman presents emergency department day complaint of abdominal pain, he recently underwent colonoscopy yesterday states he did well after the procedure with tolerating food then later that night he developed some discomfort pain has continued this morning he is stopped passing gas and has not had a bowel movement, colonoscopy was follow-up rectal adenoma abdominal Pain Score (Numeric/FACES): 4 - Related Data Allergies Allergy/AdvReac Type Severity Reaction Status Date / Time No Known Allergies Allergy Verified 10/27/20 06:46 Home Meds: Home Meds Simvastatin 40 mg PO BEDTIME 10/15/13 [History] Warfarin [Coumadin] 2.5 mg PO ASDIRECTED 05/04/16 [History] Sotalol HCl [Sotalol] 40 mg PO BID 04/22/18 [History] Latanoprost 1 drop EYEBOTH BEDTIME 05/23/19 [History] Warfarin [Coumadin] 3.75 mg PO ASDIRECTED 09/12/19 [History] Docusate Sodium [Colace] 100 mg PO DAILY 07/28/20 [History] Enoxaparin [Lovenox] 120 mg SUBCUT DAILY 10/27/20 [History] Past Medical History HEENT History: Reports: Cataract, Glaucoma, Hard of Hearing Cardiovascular History: Reports: Afib, Blood Clots/VTE/DVT, High Cholesterol, Other (See Below) Other Cardiovascular History: Cardioversion multiple times Respiratory History: Reports: PE Other Respiratory History: 2006 Gastrointestinal History: Reports: Colon Polyp, GERD Genitourinary History: Reports: BPH, Other (See Below) Other Genitourinary History: prostrate cancer Musculoskeletal History: Reports: Other (See Below) Other Musculoskeletal History: fell on ice 2018 and left leg/hip edema since (resolved) Neurological History: Reports: Neuropathy, Peripheral, TIA Hematologic History: Reports: Anticoagulation Therapy Oncologic (Cancer) History: Reports: Prostate - Infectious Disease History Infectious Disease History: Reports: Chicken Pox, Measles, Mumps - Past Surgical History Head Surgeries/Procedures: Reports: None HEENT Surgical History: Reports: Cataract Surgery, Retinal Cardiovascular Surgical History: Reports: Cardiac Ablation Respiratory Surgical History: Reports: None GI Surgical History: Reports: Appendectomy, Colonoscopy, EGD, Hernia Repair/Other, Other (See Below) Other GI Surgeries/Procedures: mass removed from colon Male Surgical History: Reports: Prostatectomy Other Male Surgeries/Procedures: 2009 Endocrine Surgical History: Reports: None Neurological Surgical History: Reports: None Musculoskeletal Surgical History: Reports: Hip Replacement Other Musculoskeletal Surgeries/Procedures:: rigt and left Oncologic Surgical History: Reports: None Dermatological Surgical History: Reports: None Social & Family History - Family History Cardiac: Reports: CAD, [place] Neurological: Reports: Parkinson's Psychiatric: Reports: Other (See Below) Other Psychiatric Family History: brother related to agent orange Oncologic: Reports: Lung - Caffeine Use Caffeine Use: Reports: Coffee ED ROS GENERAL - Review of Systems Review Of Systems: See Below Constitutional: Reports: No Symptoms Respiratory: Reports: No Symptoms Cardiovascular: Reports: No Symptoms GI/Abdominal: Reports: Abdominal Pain (With a deep breath), Constipation. Denies: Diarrhea, Flatus, Nausea, Vomiting ED EXAM, GI/ABD - Physical Exam Exam: See Below Exam Limited By: No Limitations General Appearance: Alert, WD/WN, No Apparent Distress Respiratory/Chest: No Respiratory Distress GI/Abdominal Exam: Normal Bowel Sounds, Soft, Tender (Tender along the right side) Course - Vital Signs Last Recorded V/S: Last Vital Signs Temp 97.1 F 10/28/20 15:14 Pulse 53 L 10/28/20 16:06 Resp 16 10/28/20 15:14 BP 123/69 10/28/20 16:06 Pulse Ox 99 10/28/20 16:06 - Orders/Labs/Meds Orders: Active Orders 24 hr Category Date Time Status Peripheral IV Care [RC] . DIRECTED Care 10/28/20 16:21 Active Abdomen 1V Upright [CR] Stat Exams 10/28/20 15:45 Taken Abdomen Pelvis w Cont [CT] Stat Exams 10/28/20 16:16 Taken INR,PT,PROTHROMBIN TIME [COAG] Urgent Lab 10/28/20 17:07 Ordered Iopamidol [Isovue-300 (61%)] Med 10/28/20 16:23 Active 118 ml IV . DIRECTED PRN Sodium Chloride 0.9% [Normal Saline] 100 ml Med 10/28/20 16:30 Active IV ASDIRECTED Sodium Chloride 0.9% [Saline Flush] Med 10/28/20 16:21 Active 10 ml FLUSH ASDIRECTED PRN Peripheral IV Insertion Adult [OM.PC] Urgent Oth 10/28/20 16:20 Ordered Medication Orders Sodium Chloride (Normal Saline) 100 mls @ 3 mls/sec IV ASDIRECTED KYLIE Stop: 10/28/20 21:00 Last Admin: 10/28/20 16:53 Dose: 3 mls/sec Documented by: NHUNG Iopamidol (Iopamidol 612 Mg/Ml 150 Ml Bottle) 118 ml IV . DIRECTED PRN PRN Reason: RADIOLOGY EXAM Stop: 10/29/20 16:24 Last Admin: 10/28/20 16:53 Dose: 118 ml Documented by: NHUNG Sodium Chloride (Sodium Chloride 0.9% 10 Ml Syringe) 10 ml FLUSH ASDIRECTED PRN PRN Reason: Keep Vein Open Last Admin: 10/28/20 16:53 Dose: 10 ml Documented by: NHUNG Labs: Laboratory Tests 10/28/20 10/28/20 10/28/20 Range/Units 16:30 16:30 16:30 WBC 16.0 H (4.5-11.0) K/uL RBC 4.51 (4.30-5.90) M/uL Hgb 14.0 (12.0-15.0) g/dL Hct 41.1 (40.0-54.0) % MCV 91 (80-98) fL MCH 31 (27-31) pg MCHC 34 (32-36) % Plt Count 216 (150-400) K/uL Neut % (Auto) 85.9 H (36-66) % Lymph % (Auto) 9.6 L (24-44) % [place] % (Auto) 4.0 (2-6) % Eos % (Auto) 0.4 L (2-4) % Baso % (Auto) 0.1 (0-1) % Sodium 133 L (140-148) mmol/L Potassium 4.4 (3.6-5.2) mmol/L Chloride 98 L (100-108) mmol/L Carbon Dioxide 27 (21-32) mmol/L Anion Gap 12.4 (5.0-14.0) mmol/L BUN 20 H D (7-18) mg/dL Creatinine 1.3 (0.8-1.3) mg/dL Est Cr Clr Drug Dosing 46.01 mL/min Estimated GFR (MDRD) 53 L (>60) Glucose 94 (74-106) mg/dL Lactic Acid 1.6 (0.4-2.0) mmol/L Calcium 8.6 (8.5-10.1) mg/dL Total Bilirubin 0.9 (0.2-1.0) mg/dL AST 22 (15-37) U/L ALT 20 (12-78) U/L Alkaline Phosphatase 92 (46-116) U/L C-Reactive Protein (0.0-0.3) mg/dL Total Protein 6.5 (6.4-8.2) g/dL Albumin 2.8 L (3.4-5.0) g/dL Globulin 3.7 H (2.3-3.5) g/dL Albumin/Globulin Ratio 0.8 L (1.2-2.2) 10/28/20 Range/Units 16:30 WBC (4.5-11.0) K/uL RBC (4.30-5.90) M/uL Hgb (12.0-15.0) g/dL Hct (40.0-54.0) % MCV (80-98) fL MCH (27-31) pg MCHC (32-36) % Plt Count (150-400) K/uL Neut % (Auto) (36-66) % Lymph % (Auto) (24-44) % [place] % (Auto) (2-6) % Eos % (Auto) (2-4) % Baso % (Auto) (0-1) % Sodium (140-148) mmol/L Potassium (3.6-5.2) mmol/L Chloride (100-108) mmol/L Carbon Dioxide (21-32) mmol/L Anion Gap (5.0-14.0) mmol/L BUN (7-18) mg/dL Creatinine (0.8-1.3) mg/dL Est Cr Clr Drug Dosing mL/min Estimated GFR (MDRD) (>60) Glucose (74-106) mg/dL Lactic Acid (0.4-2.0) mmol/L Calcium (8.5-10.1) mg/dL Total Bilirubin (0.2-1.0) mg/dL AST (15-37) U/L ALT (12-78) U/L Alkaline Phosphatase (46-116) U/L C-Reactive Protein 14.34 H (0.0-0.3) mg/dL Total Protein (6.4-8.2) g/dL Albumin (3.4-5.0) g/dL Globulin (2.3-3.5) g/dL Albumin/Globulin Ratio (1.2-2.2) Meds: Medications Generic Name Dose Route Start Last Admin Trade Name Freq PRN Reason Stop Dose Admin Sodium Chloride 100 mls @ 3 mls/sec 10/28/20 16:30 10/28/20 16:53 Normal Saline IV 10/28/20 21:00 3 mls/sec ASDIRECTED KYLIE Administration Iopamidol 118 ml 10/28/20 16:23 10/28/20 16:53 Iopamidol 612 Mg/Ml 150 Ml Bottle IV 10/29/20 16:24 118 ml . DIRECTED PRN Administration RADIOLOGY EXAM Sodium Chloride 10 ml 10/28/20 16:21 10/28/20 16:53 Sodium Chloride 0.9% 10 Ml Syringe FLUSH 10 ml ASDIRECTED PRN Administration Keep Vein Open Discontinued Medications Generic Name Dose Route Start Last Admin Trade Name Freq PRN Reason Stop Dose Admin Aztreonam 1 gm/ Sodium 50 mls @ 100 mls/hr 10/28/20 16:21 Chloride IV 10/28/20 16:50 ONETIME ONE Meropenem 500 mg/ Sodium 50 mls @ 100 mls/hr 10/28/20 16:21 10/28/20 16:50 Chloride IV 10/28/20 16:50 100 mls/hr ONETIME ONE Administration Sodium Chloride 10 ml 10/28/20 16:23 Sodium Chloride 0.9% 10 Ml Sdv FLUSH 10/28/20 16:24 ONETIME ONE Departure - Departure Time of Disposition: 17:09 Disposition: Admitted As Inpatient 65 Condition: Fair Clinical Impression: Perforated bowel - Discharge Information Referrals: Ambrocio Garcia MD [Primary Care Provider] - Forms: ED Department Discharge Sepsis Event Note (ED) - Focused Exam Vital Signs: Vital Signs Temp Pulse Resp BP Pulse Ox 10/28/20 16:06 53 L 123/69 99 10/28/20 15:14 97.1 F 55 L 16 122/70 97 - My Orders Last 24 Hours: My Active Orders 10/28/20 15:45 Abdomen 1V Upright [CR] Stat 10/28/20 16:16 Abdomen Pelvis w Cont [CT] Stat 10/28/20 16:20 Peripheral IV Insertion Adult [OM.PC] Urgent 10/28/20 16:21 Peripheral IV Care [RC] . DIRECTED Sodium Chloride 0.9% [Saline Flush] 10 ml FLUSH ASDIRECTED PRN 10/28/20 16:23 Iopamidol [Isovue-300 (61%)] 118 ml IV . DIRECTED PRN 10/28/20 16:30 Sodium Chloride 0.9% [Normal Saline] 100 ml IV ASDIRECTED 10/28/20 17:07 INR,PT,PROTHROMBIN TIME [COAG] Urgent - Assessment/Plan Last 24 Hours: My Active Orders 10/28/20 15:45 Abdomen 1V Upright [CR] Stat 10/28/20 16:16 Abdomen Pelvis w Cont [CT] Stat 10/28/20 16:20 Peripheral IV Insertion Adult [OM.PC] Urgent 10/28/20 16:21 Peripheral IV Care [RC] . DIRECTED Sodium Chloride 0.9% [Saline Flush] 10 ml FLUSH ASDIRECTED PRN 10/28/20 16:23 Iopamidol [Isovue-300 (61%)] 118 ml IV . DIRECTED PRN 10/28/20 16:30 Sodium Chloride 0.9% [Normal Saline] 100 ml IV ASDIRECTED 10/28/20 17:07 INR,PT,PROTHROMBIN TIME [COAG] Urgent Plan: Assessment Acuity = acute Site and laterality = perforated bowel Etiology = probably related to recent surgical procedure Manifestations = none Location of injury = Home Lab values = WBC elevated 16.0 consistent leukocytosis, CRP elevated 14.3, CMP unremarkable plain film of the abdomen does show free air underneath the diaphragm, CT scan results pending Plan Call discussed case with Dr. Gary at 1615 he kindly agreed to come the emergency department evaluate the patient asked for additional lab work and start of Azactam and meropenem antibiotics prior to admission This note was dictated using [employer] voice recognition software please call with any questions on syntax or grammar.
[2020-10-28] MEDS ORDERED: Sodium Chloride 0.9% 10 ML Syringe FLUSH PRN (16:21)
[2020-10-28] MEDS ORDERED: Meropenem 500 MG in Sodium Chloride 0.9% 50 ML IV ONE (16:21)
[2020-10-28] MEDS ORDERED: Iopamidol 612 MG/ML 150 ML Bottle IV PRN (16:23)
[2020-10-28] MEDS ORDERED: Sodium Chloride 0.9% 10 ML SDV FLUSH ONE (16:23)
[2020-10-28] MEDS ORDERED: Sodium Chloride 0.9% 100 ML IV SCH (16:30)
--- NOTE | 2020-10-28 18:25 | CRLCT ---
For Patients: As a result of the Century Cures Act, medical imaging exams and procedure reports are released immediately into your electronic medical record. You may view this report before your referring provider. If you have questions, please contact your health care provider. INDICATION: Free air on recent abdominal films. History of recurrent rectal carcinoma. Status post colonoscopy yesterday. COMPARISON: Plain film from earlier today and CT of the abdomen and pelvis from 09/04/2019 TECHNIQUE: CT examination of the abdomen and pelvis was performed with the uneventful intravenous administration of 118 cc of Isovue-300 while 3 mm thick axial sections were obtained from the lung bases through the pubic symphysis. Oral contrast was not administered. Please note that all CT scans at this facility use dose modulation, iterative reconstruction, and/or weight-based dosing when appropriate to reduce radiation dose to as low as reasonably achievable. FINDINGS: There is massive free air in the abdomen and pelvis. This is seen surrounding the rectum, with air seen involving the anterior superior rectum, and dissecting into the posterior perirectal space. This is most likely the site of bowel perforation. There is a moderate amount of air dissected into the right retroperitoneal space, extending superiorly from the right perirectal space. The air dissects into the perinephric space on the right and into the right posterior paraspinous soft tissues. There is a large amount of air dissected throughout the more superior retroperitoneum, surrounding the pancreas and the mesenteric vessels. In the abdomen, the liver, spleen, pancreas, and adrenals are normal in appearance. The kidneys are normal in appearance. The gallbladder is normal in appearance. The abdominal aorta is normal in caliber with no sign of dilatation. There is no sign of retroperitoneal mass or adenopathy. The stomach, loops of small bowel, and colon in the abdomen are normal in appearance. In the pelvis, the appendix is nonvisualized, but there is no sign of an inflammatory process in the area of the appendix. There is moderate sigmoid diverticulosis without evidence of diverticulitis. The loops of small bowel and colon in the pelvis are otherwise normal in appearance. The prostate remains normal in appearance. The urinary bladder is normal in appearance. There is no sign of pelvic mass or adenopathy. Again seen is a lobulated fluid collection located posterior to the right hip, measuring approximately 6.3 x 3.2 centimeters, decreased in size compared to the previous study. Again seen is the lobulated fluid collection seen anterior to the right hip, extending inferiorly and posteriorly along the femoral shaft, measuring approximately 5.5 x 2.9 centimeters, also decreased in size compared to the previous study. These collections are probably postoperative seromas or possibly sterile abscess is. They are located adjacent to the left total hip prosthesis. The prosthetic components are normal appearance with no sign of fracture, loosening, or dislocation. There is no sign of any osseous destruction to suggest osteomyelitis. The components of a right total hip prosthesis remain in anatomic alignment with no sign of fracture, loosening, or dislocation. There is no sign of fracture of the [place] osseous structures. There is no sign of free fluid in the abdomen or pelvis. There is new mild linear atelectasis in the posterior right lung base. The lung bases are otherwise clear. There is no sign pneumothorax. The heart is top-normal in size. There is stable grade 1 anterior subluxation of L4 on L5 without pars interarticularis defects, associated with moderate bilateral facet arthropathy. There is fusion of L5-S1 in anatomic alignment with moderate narrowing of the joint space. I discussed the findings with Officer at 1812 hours on 10/28/2020. IMPRESSION: Massive free intra-abdominal air, probably arising from perforation of the superior rectum. No free fluid in the abdomen or pelvis however. CT of the abdomen shows no additional significant abnormality. CT of the pelvis shows moderate sigmoid diverticulosis with no sign of diverticulitis. Decrease in size of lobular fluid collection seen anterior and posterior to the left prosthetic hip, consistent with decreased postoperative seromas or possibly sterile abscesses. Please note that all CT scans at this facility use dose modulation, iterative reconstruction, and/or weight-based dosing when appropriate to reduce radiation dose to as low as reasonably achievable. Dictated by Aawis Hong MD @ 10/28/2020 6:24:[address] Awais Hong @ Oct 28 2020 6:24PM
[2020-10-28] MEDS ORDERED: HYDROmorphone 1 MG/ML Syringe IV PRN (18:48)
[2020-10-28] MEDS ORDERED: Ondansetron 4 MG/2 ML SDV IVPUSH PRN (18:49)
[2020-10-28] MEDS: Dextrose 5%-Lactated Ringers 1,000 ML IV SCH (18:55)
[2020-10-28] MEDS: Clindamycin Phosphate 900 MG in Sodium Chloride 0.9% 100 ML IV SCH (19:53)
[2020-10-28] MEDS: Pantoprazole 40 MG Vial IV SCH (19:56)
[2020-10-28] MEDS: Sotalol 80 MG Tab PO SCH (20:18)
[2020-10-28] MEDS: Docusate Sodium 100 MG Cap PO SCH (20:18)
[2020-10-28] MEDS: Acetaminophen 500 MG Tab PO SCH (20:19)
[2020-10-28] MEDS: Latanoprost 0.005% Ophth Soln 2.5 ML Bottle EYEBOTH SCH (20:20)
[2020-10-29] MEDS ORDERED: Meropenem 500 MG in Sodium Chloride 0.9% 50 ML IV SCH (01:00)
[2020-10-29] MEDS: Clindamycin Phosphate 900 MG in Sodium Chloride 0.9% 100 ML IV SCH ×3 (02:25→18:01)
[2020-10-29] MEDS: Acetaminophen 500 MG Tab PO SCH ×4 (02:25→21:13)
[2020-10-29] MEDS: Dextrose 5%-Lactated Ringers 1,000 ML IV SCH ×2 (06:46→21:31)
[2020-10-29] MEDS ORDERED: HYDROmorphone 1 MG/ML Syringe IV PRN (07:21)
[2020-10-29] MEDS: Meropenem 500 MG in Sodium Chloride 0.9% 50 ML IV SCH ×3 (07:56→21:18)
[2020-10-29] MEDS: Sotalol 80 MG Tab PO SCH ×2 (08:42→21:14)
[2020-10-29] MEDS: Docusate Sodium 100 MG Cap PO SCH ×2 (08:44→21:13)
--- NOTE | 2020-10-29 08:54 | CR ---
Abdomen 1V Upright CLINICAL HISTORY: Abdominal pain FINDINGS: There is a large amount of free intraperitoneal air. There is stippled air seen in the right abdomen and pelvis. Some of this may be retroperitoneal or possibly some pneumatosis. Intestinal gas pattern is nonobstructive IMPRESSION: Significant free intraperitoneal air Mottled air collections in the right abdomen and pelvis may represent some retroperitoneal air and possibly some pneumatosis intestinalis
[2020-10-29] MEDS ORDERED: Enoxaparin 100 MG/1 ML Syringe SUBCUT ONE (09:00)
[2020-10-29] MEDS: Potassium Phos in 0.9 % NaCl 15 MMOL in Premix Bag 1 BAG IV SCH ×6 (09:32→15:42)
--- NOTE | 2020-10-29 10:00 | CR ---
Abdomen 2V AP Flat Upright CLINICAL HISTORY: Free air FINDINGS: A large amount of free intraperitoneal air persists. There is model air in the right the abdomen and pelvic region which is within the retroperitoneum. This is seen on current CT. IMPRESSION: No significant change in free intraperitoneal and retroperitoneal air
[2020-10-29] MEDS ORDERED: WARFARIN PO ONE ×2 (13:00)
[2020-10-29] MEDS: Pantoprazole 40 MG Vial IV SCH (21:11)
[2020-10-29] MEDS: Latanoprost 0.005% Ophth Soln 2.5 ML Bottle EYEBOTH SCH (21:13)
[2020-10-30] MEDS: Meropenem 500 MG in Sodium Chloride 0.9% 50 ML IV SCH ×2 (01:06→06:48)
[2020-10-30] MEDS: Clindamycin Phosphate 900 MG in Sodium Chloride 0.9% 100 ML IV SCH (01:40)
[2020-10-30] MEDS: Acetaminophen 500 MG Tab PO SCH ×2 (04:22→10:29)
[2020-10-30] MEDS ORDERED: POTASSIUM PHOS IV ONE ×2 (06:49)
[2020-10-30] MEDS ORDERED: NACL IV ONE ×2 (06:49)
[2020-10-30] MEDS: Potassium Phos in 0.9 % NaCl 15 MMOL in Premix Bag 1 BAG IV SCH ×4 (07:40→10:27)
[2020-10-30] MEDS ORDERED: Potassium Phosphates 30 MMOLE in Sodium Chloride 0.9% 250 ML IV SCH (07:45)
[2020-10-30] MEDS ORDERED: Ertapenem 1 GM in Sodium Chloride 0.9% 100 ML IV SCH (08:30)
[2020-10-30] MEDS: Sotalol 80 MG Tab PO SCH (08:40)
[2020-10-30] MEDS: Docusate Sodium 100 MG Cap PO SCH (08:41)
[2020-10-30] MEDS ORDERED: Magnesium Oxide 400 MG Tab PO SCH (09:00)
--- NOTE | 2020-10-30 09:15 | CR ---
Abdomen 2V AP Upright Decub CLINICAL HISTORY: Follow-up free air FINDINGS: There is persistent free intraperitoneal air. This is similar if not slightly diminished when compared to prior study. There are technical differences. Mottled air in the right retroperitoneum and pelvis is similar if not slightly increased when compared to prior study. IMPRESSION: Possible slight decrease in intraperitoneal air. Slight increase in retroperitoneal air
[2020-10-30] MEDS ORDERED: Warfarin 2.5 MG Tab PO ONE (10:00)
--- NOTE | 2020-10-30 10:29 | DISCH ---
ADMISSION DIAGNOSES: 1. Abdominal pain, status post colonoscopy. 2. Perforation rectum, air involving the anterior superior rectum dissecting into the posterior perirectal space. 3. Atrial fibrillation, chronic anticoagulation therapy. 4. History of prostate cancer. DISCHARGE DIAGNOSES: 1. Abdominal pain, resolved. 2. Perforation posterior perirectal space status post colonoscopy. HISTORY: Demetrius Rosenberg is a pleasant 80-year-old male who presented to the clinic and then transferred to the emergency room on 10/28/2020. He had severe abdominal pain with previous colonoscopy the day before. He was worked up in the emergency room and was found to have a perforation as stated above. He was admitted to the hospital and started on clindamycin, aztreonam, and meropenem IV antibiotics. Pain was controlled with Tylenol. He felt much better the next morning and his Coumadin was restarted and he was also receiving Lovenox. He remained on a clear-liquid diet until day of discharge 10/30/2020, and he was advanced to a full-liquid diet. PHYSICAL EXAMINATION: GENERAL: Iván Rosenberg is a pleasant 80-year-old male. He is alert and orientated. VITAL SIGNS: TPR; 95.8, 70, 16. Blood pressure 113/71. HEENT: Negative. NECK: Supple. HEART: Regular rate and rhythm. LUNGS: Clear. ABDOMEN: Soft and completely nontender. EXTREMITIES: Without peripheral edema. DISPOSITION: Discharged home. CONDITION: Stable and improving. FOLLOWUP APPOINTMENT: With Robert Gary, 11/12/2020 at 9 a.m. NEW PRESCRIPTIONS: 1. He is to take Lovenox which he has at home, he had one dose before discharge, he is to take one dose tomorrow, Tuesday10/31/2020. 2. Start magnesium oxide 400 mg p.o. daily, #30, for 1 month. 3. Coumadin, he is to take 2.5 mg tomorrow. 4. Restart simvastatin 40 mg at bedtime. 5. Sotalol 40 mg oral twice daily. 6. Latanoprost 1 drop in each eye at bedtime. 7. Colace 100 mg oral daily. DIET: Drink 8 to 10 glasses of water a day, full-liquid diet. ACTIVITY: As tolerated. Driving: May drive today. Shower/Bathing: May shower. Notify provider if any fever, increased pain, nausea, or vomiting. SPECIAL INSTRUCTIONS: 1. Take Coumadin 2.5 mg and Lovenox 120 mg Tuesday10/31/2020, on Tuesday11/01/2020, do not take Coumadin and Lovenox. PT and INR will be checked on Tuesday when you come in for IV antibiotics, and Dr. Gary will give you instruction on how much Coumadin to take. 2. Tuesday through Tuesday 10/31 to 11/04, you will be coming into the hospital for IV antibiotics. 3. Any questions or concerns you can call the hospital at [phone] or clinic at [phone], and ask for Dr. Gary or Merry Loya. /[id number]
[2020-10-30 10:54] VITALS: BP 114/73; PULSE 78
--- NOTE | 2020-10-31 07:04 | HP ---
DATE OF SERVICE: 10/28/2020 HISTORY OF PRESENT ILLNESS: This is an 80-year-old male who is being treated with followup flexible sigmoidoscopy and biopsies and ablation of a broad-based polypoid tissue area in the very low rectum. In the past, this has come back as tubular adenoma with high-grade dysplasia. More recently, the biopsies have not shown any dysplasia beyond reportedly a perineal incision of the main area of that roughly 6 to 7 months ago. Yesterday, the patient underwent a flexible sigmoidoscopy with full colon prep. He was noted to have the staple line in place and some scattered slightly fleshy tissue which was of uncertain nature. Biopsies were obtained and the area generally then ablated with electrocautery. The patient was discharged home feeling good and developed some vague abdominal discomfort. He was seen initially in the clinic by Merry BUSCH, and referred to emergency room. In the emergency room, he was noted to have a fairly large amount of free air. CT scan is pending, but per my reading he has some air in the perirectal area with this likely dissecting up along the pelvic sidewall resulting in some free intraperitoneal air from that point upward. The patient is clinically stable. He is alert. He has some mild discomfort related to the abdomen, but no serious pain in terms of requiring narcotics and such. His temperature is 97.1; blood pressure 123/69; heart rates in the 50s, but he has beta-marietta chronically; and white count was 16,000. Other labs including CRP are pending as is the official CT report. PAST MEDICAL HISTORY: Includes atrial fibrillation, controlled with sotalol; history of DVT over a year ago when he had a fall requiring some drainage of fluid and such in the hip area. Otherwise, he is on chronic anticoagulation consisting of warfarin and aspirin, in the last few days bridged with Lovenox. He has a history of cardioversion in the past, history of prostate cancer which is stable, and bilateral hip replacements. PHYSICAL EXAMINATION: VITAL SIGNS: As noted above. GENERAL: The patient is fairly comfortable, appearing in the emergency room. HEART: Shows some irregular rhythm with rate in the 50s. LUNGS: Clear. ABDOMEN: Somewhat distended. He has very mild diffuse tenderness consistent with some distention related to the free air. RECTAL: Not repeated at this time to avoid additional trauma. The colorectal staff at the [facility] was contacted and the case reviewed in length with Dr. Alejandro Salinas at [facility], colorectal staff. He felt at this point this would be a case that could be managed nonoperatively, at least initially, and then reserve operation for clinical deterioration. We will begin the patient on broad spectrum antibiotics including meropenem, Azactam, and clindamycin and he will be admitted NPO except for some ice chips and occassional sips of water. We will add some Protonix, some Dilaudid as needed, re-continue his sotalol and be given Tylenol 1 g q.6 hours scheduled and some Colace 100 mg b.i.d. to avoid problems with development of constipation. As discussed above, the patient will be admitted if he clinically deteriorates. The plan most likely would be to initiate a laparoscopy and laparotomy if necessary. The colorectal staff suggested it is possible to simply transanally place some sutures in that area as well or possibly staple the region followed by current drainage with or without proximal diversion depending on the clinical status should an operative approach be required. Robert Gary MD /[id number]
--- NOTE | 2020-10-31 07:09 | PN ---
DATE OF SERVICE: 10/29/2020 The patient's temp is running in the 97 to 98 range, heart rate is in the 40s which is typical from him being beta blocked, blood pressure 116/61, and O2 sats room air. Clinically, he is fairly comfortable, only requiring some Tylenol. Examination shows the abdomen is mildly distended. There is essentially no tenderness on palpation, however, today which is quite a bit improved from this presentation yesterday in the clinic. The abdominal x-ray shows still quite a bit in the way of free air, but this appears to be from 24 hours ago and it will likely take a while to resolve. Laboratory shows a white count normalized at 8.5 from 6.30 yesterday. CRP was 14.3 yesterday and 11.7 today, so it is trending in the correct direction as well. Potassium and phosphate are marginally low, and those would be supplemented today. Blood sugar is 110. Pro time is subtherapeutic, and I think we can safely restart some Lovenox today, restart Coumadin . IMPRESSION: He overall appears to be heading in the direction of being able to be managed non-operatively. As discussed with the Colorectal staff in the [facility] yesterday, one option, if he continues to have quite a bit of accumulation of free air, would be to transanally place some sutures in that area. At this point, he looks clinically stable enough. I do not think we need to do any additional interventions in that regard. We will keep the IV antibiotics going for today. His has dementia, but he has quite a bit of family support at this point, and within the next day or so we may be able to get him home using an outpatient antibiotic regimen. We will begin more of a clear liquid diet today with some Ensure Clear, and recheck the labs and abdominal x-ray tomorrow. He may otherwise maximize activity and work with pulmonary toilet. Robert Gary MD /[id number]
== END 2020-10-30 13:14 | disposition home or self-care (01) | DRG 395 ==
LOC: JP.ED 14:48 → JP.ICU 17:45 → UNDOADMIN 17:45 → JP.MS 10-29 13:50
PROVIDERS: ADMIT Surgery; ATTEND Surgery
DX: K63.1 Perforation of intestine (nontraumatic) (principal); I48.91 Unspecified atrial fibrillation; Z96.643 Presence of artificial hip joint, bilateral; H91.90 Unspecified hearing loss, unspecified ear; H40.9 Unspecified glaucoma; E78.00 Pure hypercholesterolemia, unspecified; K21.9 Gastro-esophageal reflux disease without esophagitis; N40.0 Benign prostatic hyperplasia without lower urinary tract symptoms; G62.9 Polyneuropathy, unspecified; Z85.46 Personal history of malignant neoplasm of prostate; Z79.01 Long term (current) use of anticoagulants; Z86.718 Personal history of other venous thrombosis and embolism; Z79.82 Long term (current) use of aspirin; Z86.73 Personal history of transient ischemic attack (TIA), and cerebral infarction without residual deficits; Z90.49 Acquired absence of other specified parts of digestive tract; Z98.890 Other specified postprocedural states; Z86.711 Personal history of pulmonary embolism; Z86.010 Personal history of colon polyps; Z79.899 Other long term (current) drug therapy
CPT/HCPCS: 36415; 74018; 74018-26; 74019; 74019-26; 74021; 74021-26; 74177; 80053; 83605; 83735; 83880; 84100; 85025; 85027; 85610; 86140; 94762; 96365; 99285-25; A9270-GY; C9113; J1335; J1650; J2185; J3490; J7121; Q9967

== ENCOUNTER 2020-10-31 14:50 | Emergency (ER) | payer MEDICARE, BC ==
[2020-10-31 15:23] VITALS: BP 153/95; PULSE 79
--- NOTE | 2020-10-31 16:05 | EDM.PDOC ---
ED HPI GENERAL MEDICAL PROBLEM - General Chief Complaint: Cardiovascular Problem Stated Complaint: AFIB Time Seen by Provider: 10/31/20 15:30 Source of Information: Reports: Patient, Family History Limitations: Reports: No Limitations - History of Present Illness INITIAL COMMENTS - FREE TEXT/NARRATIVE: 80-year-old male arrives because he believes he is in atrial fibrillation. He really has no symptoms, but his pulse is irregular and he is under observation right now after being in the hospital for a few days because of a bowel perforation after colonoscopy. He has resumed his warfarin and is bridged with Lovenox. He is coming in this weekend for daily antibiotics. Onset: Unknown/Unsure Associated Symptoms: Reports: No Other Symptoms. Denies: Chest Pain, Headaches, Loss of Appetite, Nausea/Vomiting, Shortness of Breath, Weakness - Related Data Allergies Allergy/AdvReac Type Severity Reaction Status Date / Time No Known Allergies Allergy Verified 10/31/20 15:14 Home Meds: Home Meds Simvastatin 40 mg PO BEDTIME 10/15/13 [History] Warfarin [Coumadin] 2.5 mg PO ASDIRECTED 05/04/16 [History] Sotalol HCl [Sotalol] 40 mg PO BID 04/22/18 [History] Latanoprost 1 drop EYEBOTH BEDTIME 05/23/19 [History] Docusate Sodium [Colace] 100 mg PO DAILY 07/28/20 [History] Enoxaparin [Lovenox] 120 mg SUBCUT DAILY #0 10/30/20 [Rx] Magnesium Oxide 400 mg PO DAILY #30 tablet 10/30/20 [Rx] Past Medical History HEENT History: Reports: Cataract, Glaucoma, Hard of Hearing, Retinal Detachment Cardiovascular History: Reports: Afib, Blood Clots/VTE/DVT, High Cholesterol, Other (See Below) Other Cardiovascular History: Cardioversion multiple times Respiratory History: Reports: PE Other Respiratory History: 2006 Gastrointestinal History: Reports: Colon Polyp, GERD, Other (See Below) Other Gastrointestinal History: status post colonoscopy 10/29/20 Genitourinary History: Reports: BPH, Other (See Below) Other Genitourinary History: prostrate cancer. prostatectomy Musculoskeletal History: Reports: Other (See Below) Other Musculoskeletal History: fell on ice 2018 and left leg/hip edema since (resolved) Neurological History: Reports: Neuropathy, Peripheral, TIA Psychiatric History: Reports: None Endocrine/Metabolic History: Reports: None Hematologic History: Reports: Anticoagulation Therapy Immunologic History: Reports: None Oncologic (Cancer) History: Reports: Prostate Dermatologic History: Reports: None - Infectious Disease History Infectious Disease History: Reports: Chicken Pox, Measles, Mumps - Past Surgical History Head Surgeries/Procedures: Reports: None HEENT Surgical History: Reports: Cataract Surgery, Retinal Cardiovascular Surgical History: Reports: Cardiac Ablation Respiratory Surgical History: Reports: None GI Surgical History: Reports: Appendectomy, Colonoscopy, EGD, Hernia Repair/Other, Other (See Below) Other GI Surgeries/Procedures: mass removed from colon, polyp removed for biopsy on 10/27/20 Male Surgical History: Reports: Prostatectomy Other Male Surgeries/Procedures: 2009 Endocrine Surgical History: Reports: None Neurological Surgical History: Reports: None Musculoskeletal Surgical History: Reports: Hip Replacement Other Musculoskeletal Surgeries/Procedures:: rigt and left Oncologic Surgical History: Reports: None Dermatological Surgical History: Reports: None Social & Family History - Family History Cardiac: Reports: CAD, [place] Neurological: Reports: Parkinson's Psychiatric: Reports: Other (See Below) Other Psychiatric Family History: brother related to agent orange Oncologic: Reports: Lung - Tobacco Use Tobacco Use Status *Q: Never Tobacco User - Caffeine Use Caffeine Use: Reports: Coffee ED ROS GENERAL - Review of Systems Review Of Systems: See Below Constitutional: Denies: Fever, Chills, Malaise HEENT: Reports: No Symptoms Respiratory: Denies: Shortness of Breath, Hemoptysis Cardiovascular: Reports: Palpitations GI/Abdominal: Reports: Other (Recent bowel perforation from procedure). Denies: Nausea, Vomiting Skin: Reports: No Symptoms ED EXAM, GENERAL - Physical Exam Exam: See Below Exam Limited By: No Limitations General Appearance: Alert, No Apparent Distress Eye Exam: Bilateral Eye: Normal Inspection Head: Atraumatic Neck: Supple, Non-Tender Respiratory/Chest: No Respiratory Distress, Lungs Clear Cardiovascular: Irregularly Irregular. No: Bradycardia, Tachycardia GI/Abdominal: Normal Bowel Sounds, Soft, Non-Tender Extremities: Normal Inspection, No Pedal Edema Neurological: Alert, Oriented, No Motor/Sensory Deficits Psychiatric: Normal Affect, Normal Mood Skin Exam: Warm, Dry Course - Vital Signs Last Recorded V/S: Last Vital Signs Temp 96.6 F L 10/31/20 15:21 Pulse 79 10/31/20 15:21 Resp 14 10/31/20 15:21 BP 153/95 H 10/31/20 15:21 Pulse Ox 96 10/31/20 15:21 - Re-Assessments/Exams Free Text/Narrative Re-Assessment/Exam: 10/31/20 17:08 Patient was placed on cardiac monitoring and indeed does show atrial fibrillation with an excellent rate control. He is asymptomatic, anticoagulated, and review of his record shows he was in sinus rhythm 3 days ago prior to his colonoscopy. It is unknown when it started. Patient will return tomorrow for antibiotics, he will also have an INR checked at that time. There is no need for cardioversion at this time. He will return if he becomes tachycardic, symptomatic with shortness of breath or chest pain. Departure - Departure Time of Disposition: 16:36 Disposition: Home, Self-Care 01 Clinical Impression: Atrial fibrillation Qualifiers: Atrial fibrillation type: paroxysmal Qualified Code(s): I48.0 - Paroxysmal atrial fibrillation Instructions: Atrial Fibrillation, [id number] Referrals: Ambroico Garcia MD [Primary Care Provider] - Forms: ED Department Discharge Care Plan Goals: Return this weekend for treatment as scheduled, you will be reassessed at that time. Return sooner if uncontrolled rate, shortness of breath or chest pain. Sepsis Event Note (ED) - Evaluation Sepsis Screening Result: No Definite Risk - Focused Exam Vital Signs: Vital Signs Temp Pulse Resp BP Pulse Ox 10/31/20 15:21 96.6 F L 79 14 153/95 H 96
== END 2020-10-31 16:37 | disposition home or self-care (01) ==
LOC: JP.ED 14:50
DX: I48.0 Paroxysmal atrial fibrillation (principal); E78.00 Pure hypercholesterolemia, unspecified; Z86.711 Personal history of pulmonary embolism; Z79.01 Long term (current) use of anticoagulants; Z79.899 Other long term (current) drug therapy
CPT/HCPCS: 99284

== ENCOUNTER 2020-11-03 09:52 | Day surgery (SDC) | payer MEDICARE, BC ==
[2020-11-03] MEDS ORDERED: Sodium Chloride 0.9% 1,000 ML IV SCH (10:07)
[2020-11-03] MEDS ORDERED: Propofol 200 MG/20 ML SDV ONE (10:25)
[2020-11-03 12:00] VITALS: BP 136/77; PULSE 49
--- NOTE | 2020-11-03 12:21 | PCM.OPNOTE ---
- General Post-Op/Procedure Note Date of Surgery/Procedure: 11/03/20 Operative Procedure(s): Electrical cardioversion Pre Op Diagnosis: Atrial fibrillation with controlled ventricular response Post-Op Diagnosis: Successful electrical cardioversion to sinus rhythm Anesthesia Technique: Moderate Sedation Primary Surgeon: Luis Alberto Perez Anesthesia Provider: Juanito Alvarado Complications: None Condition: Good Free Text/Narrative:: Mr. Rosenberg is an 80-year-old gentleman who was scheduled for elective electrical cardioversion this morning. He has a known history of paroxysmal atrial fibrillation and has been on long-term oral anticoagulation with warfarin. Last week he underwent flexible sigmoidoscopy and unfortunately experienced a small perforation. When he woke up from the procedure felt as though he was in atrial fibrillation. He did not require surgical intervention and the perforation has been managed medically with IV antibiotic therapy. He was seen in the emergency department 3 days ago and was found to be in atrial fibrillation with controlled ventricular response. His warfarin had been held for the flexible sigmoidoscopy, he was bridged with Lovenox and has remained on Lovenox as his INR has been subtherapeutic. He was not feeling well with the atrial fibrillation and requested that we proceed with cardioversion. Risks and goals of the procedure were reviewed with the patient and he gave informed consent to proceed. Prior to the procedure potassium level was obtained and found to be w ithin normal range and EKG was performed which did confirm atrial fibrillation with controlled ventricular response as well as frequent premature ventricular complexes. He was taken to PAR and sedation was provided by the anesthesia service. After adequate sedation was achieved he was successfully cardioverted to sinus rhythm using 200 J of energy delivered in a synchronized fashion. He will be discharged home as he is fully recovered from his IV sedation. Follow- up appointment will be with Dr. Gary as previously directed. He will go to the Coumadin clinic today for follow-up INR and will continue Lovenox if INR is subtherapeutic. Follow-up appointment will be scheduled with his primary care provider in 1 to 2 weeks.
== END 2020-11-03 12:04 | disposition home or self-care (01) ==
LOC: JP.SDS 09:52
PROVIDERS: ATTEND Hospitalist
DX: I48.0 Paroxysmal atrial fibrillation (principal); Z79.01 Long term (current) use of anticoagulants; Z86.73 Personal history of transient ischemic attack (TIA), and cerebral infarction without residual deficits
CPT/HCPCS: 36415; 82550; 84132; 85610; 92960; 93005; J2704; J7030

== ENCOUNTER 2020-11-22 11:50 | Emergency (ER) | payer MEDICARE, BC ==
--- NOTE | 2020-11-22 12:45 | EDM.PDOC ---
ED HPI GENERAL MEDICAL PROBLEM - General Chief Complaint: Cardiovascular Problem Stated Complaint: AFIB Time Seen by Provider: 11/22/20 12:37 Source of Information: Reports: Patient, Family, RN Notes Reviewed History Limitations: Reports: No Limitations - History of Present Illness INITIAL COMMENTS - FREE TEXT/NARRATIVE: 80-year-old gentleman presents emergency department day complaint of syncope, he has known history of atrial fibrillation has recently had his medications adjusted with his sotalol being reduced by half and starting of the medication digoxin. The reason was this done is because of bradycardia. He does take Coumadin with his atrial fibrillation - Related Data Allergies Allergy/AdvReac Type Severity Reaction Status Date / Time No Known Allergies Allergy Verified 11/22/20 12:24 Home Meds: Home Meds Simvastatin 40 mg PO BEDTIME 10/15/13 [History] Warfarin [Coumadin] 2.5 mg PO ASDIRECTED 05/04/16 [History] Sotalol HCl [Sotalol] 40 mg PO BID 04/22/18 [History] Latanoprost 1 drop EYEBOTH BEDTIME 05/23/19 [History] Docusate Sodium [Colace] 100 mg PO DAILY 07/28/20 [History] Enoxaparin [Lovenox] 120 mg SUBCUT DAILY #0 10/30/20 [Rx] Magnesium Oxide 400 mg PO DAILY #30 tablet 10/30/20 [Rx] Digoxin [Lanoxin] 1 tab PO DAILY 11/22/20 [History] Past Medical History HEENT History: Reports: Cataract, Glaucoma, Hard of Hearing, Retinal Detachment Cardiovascular History: Reports: Afib, Blood Clots/VTE/DVT, High Cholesterol, Other (See Below) Other Cardiovascular History: Cardioversion multiple times Respiratory History: Reports: PE Other Respiratory History: 2006 Gastrointestinal History: Reports: Colon Polyp, GERD, Other (See Below) Other Gastrointestinal History: status post colonoscopy 10/29/20 Genitourinary History: Reports: BPH, Other (See Below) Other Genitourinary History: prostrate cancer. prostatectomy Musculoskeletal History: Reports: Other (See Below) Other Musculoskeletal History: fell on ice 2018 and left leg/hip edema since (resolved) Neurological History: Reports: Neuropathy, Peripheral, TIA Hematologic History: Reports: Anticoagulation Therapy Immunologic History: Reports: None Oncologic (Cancer) History: Reports: Prostate Dermatologic History: Reports: None - Infectious Disease History Infectious Disease History: Reports: Chicken Pox, Measles, Mumps - Past Surgical History Head Surgeries/Procedures: Reports: None HEENT Surgical History: Reports: Cataract Surgery, Retinal Cardiovascular Surgical History: Reports: Cardiac Ablation Respiratory Surgical History: Reports: None GI Surgical History: Reports: Appendectomy, Colonoscopy, EGD, Hernia Repair/Other, Other (See Below) Other GI Surgeries/Procedures: mass removed from colon, polyp removed for biopsy on 10/27/20 Male Surgical History: Reports: Prostatectomy Other Male Surgeries/Procedures: 2009 Endocrine Surgical History: Reports: None Neurological Surgical History: Reports: None Musculoskeletal Surgical History: Reports: Hip Replacement Other Musculoskeletal Surgeries/Procedures:: rigt and left Oncologic Surgical History: Reports: None Dermatological Surgical History: Reports: None Social & Family History - Family History Cardiac: Reports: CAD, [place] Neurological: Reports: Parkinson's Psychiatric: Reports: Other (See Below) Other Psychiatric Family History: brother related to agent orange Oncologic: Reports: Lung - Tobacco Use Tobacco Use Status *Q: Never Tobacco User - Caffeine Use Caffeine Use: Reports: Coffee ED ROS GENERAL - Review of Systems Review Of Systems: See Below Constitutional: Reports: No Symptoms HEENT: Reports: No Symptoms Respiratory: Reports: No Symptoms Cardiovascular: Reports: Syncope, Other (Bradycardia) GI/Abdominal: Reports: No Symptoms ED EXAM, GENERAL - Physical Exam Exam: See Below Exam Limited By: No Limitations General Appearance: Alert, WD/WN, No Apparent Distress Respiratory/Chest: No Respiratory Distress, Lungs Clear Cardiovascular: Bradycardia ED CARDIOLOGY PROCEDURES - Cardioversion Time of Cardioversion: 14:37 Indication: Other (Symptomatic atrial fibrillation) Patient Counseled: Yes Informed Consent Obtained: Yes Preparation: IV Access, Airway Management Equipment, Supplemental Oxygen, Monitor, Reversal Agents Available, Other (Anesthesia present) Pre-Procedure Sedation: Propofol Cardioversion Energy: 200J Sync Mode: Biphasic Successful: Yes Number of Attempts: 1 Patient Condition Post Cardioversion: Improved Post Cardioversion EKG Reviewed: Yes #1 Interpretation EKG Date: 11/22/20 Time: 13:08 Rhythm: A-Fib O'Neals: LAD-Left O'Neals Deviation P-Wave: Absent QRS: Normal ST-T: Normal QT: Normal Comparison: Change From Previous EKG #2 Interpretation EKG Date: 11/22/20 Time: 14:36 Rhythm: NSR O'Neals: LAD-Left O'Neals Deviation P-Wave: Present QRS: Normal ST-T: Normal QT: Normal Comparison: Change From Previous EKG Course - Vital Signs Last Recorded V/S: Last Vital Signs Temp 96.8 F L 11/22/20 12:31 Pulse 60 11/22/20 13:21 Resp 13 11/22/20 13:21 BP 145/79 H 11/22/20 13:21 Pulse Ox 98 11/22/20 12:52 - Orders/Labs/Meds Orders: Active Orders 24 hr Category Date Time Status EKG Documentation Completion [RC] ASDIRECTED Care 11/22/20 12:43 Active Peripheral IV Care [RC] . DIRECTED Care 11/22/20 13:50 Active Sodium Chloride 0.9% [Normal Saline] 1,000 ml Med 11/22/20 14:00 Active IV ASDIRECTED Sodium Chloride 0.9% [Saline Flush] Med 11/22/20 13:50 Active 10 ml FLUSH ASDIRECTED PRN Peripheral IV Insertion Adult [OM.PC] Urgent Oth 11/22/20 13:50 Ordered EKG 12 Lead [EK] Stat Ther 11/22/20 12:42 Ordered Medication Orders Sodium Chloride (Normal Saline) 1,000 mls @ 125 mls/hr IV ASDIRECTED KYLIE Sodium Chloride (Sodium Chloride 0.9% 10 Ml Syringe) 10 ml FLUSH ASDIRECTED PRN PRN Reason: Keep Vein Open Labs: Laboratory Tests 11/22/20 11/22/20 11/22/20 Range/Units 12:57 12:57 12:57 WBC 7.6 (4.5-11.0) K/uL RBC 4.04 L (4.30-5.90) M/uL Hgb 12.5 (12.0-15.0) g/dL Hct 37.7 L (40.0-54.0) % MCV 93 (80-98) fL MCH 31 (27-31) pg MCHC 33 (32-36) % Plt Count 214 (150-400) K/uL Neut % (Auto) 56.4 (36-66) % Lymph % (Auto) 27.4 (24-44) % Potter % (Auto) 10.7 H (2-6) % Eos % (Auto) 4.7 H (2-4) % Baso % (Auto) 0.8 (0-1) % PT (9.5-12.0) sec INR (0.80-1.20) Sodium (140-148) mmol/L Potassium (3.6-5.2) mmol/L Chloride (100-108) mmol/L Carbon Dioxide (21-32) mmol/L Anion Gap (5.0-14.0) mmol/L BUN (7-18) mg/dL Creatinine (0.8-1.3) mg/dL Est Cr Clr Drug Dosing mL/min Estimated GFR (MDRD) (>60) Glucose (74-106) mg/dL Calcium (8.5-10.1) mg/dL Troponin I < 0.017 (0.000-0.056) ng/mL Digoxin 0.59 L (0.90-2.00) ng/mL 11/22/20 11/22/20 Range/Units 12:57 12:57 WBC (4.5-11.0) K/uL RBC (4.30-5.90) M/uL Hgb (12.0-15.0) g/dL Hct (40.0-54.0) % MCV (80-98) fL MCH (27-31) pg MCHC (32-36) % Plt Count (150-400) K/uL Neut % (Auto) (36-66) % Lymph % (Auto) (24-44) % Potter % (Auto) (2-6) % Eos % (Auto) (2-4) % Baso % (Auto) (0-1) % PT 32.7 H (9.5-12.0) sec INR 3.07 H (0.80-1.20) Sodium 137 L (140-148) mmol/L Potassium 4.9 (3.6-5.2) mmol/L Chloride 102 (100-108) mmol/L Carbon Dioxide 27 (21-32) mmol/L Anion Gap 12.9 (5.0-14.0) mmol/L BUN 14 D (7-18) mg/dL Creatinine 1.0 (0.8-1.3) mg/dL Est Cr Clr Drug Dosing 59.82 mL/min Estimated GFR (MDRD) > 60 (>60) Glucose 111 H (74-106) mg/dL Calcium 8.5 (8.5-10.1) mg/dL Troponin I (0.000-0.056) ng/mL Digoxin (0.90-2.00) ng/mL Meds: Medications Generic Name Dose Route Start Last Admin Trade Name Freq PRN Reason Stop Dose Admin Sodium Chloride 1,000 mls @ 125 mls/hr 11/22/20 14:00 Normal Saline IV ASDIRECTED KYLIE Sodium Chloride 10 ml 11/22/20 13:50 Sodium Chloride 0.9% 10 Ml Syringe FLUSH ASDIRECTED PRN Keep Vein Open Discontinued Medications Generic Name Dose Route Start Last Admin Trade Name Freq PRN Reason Stop Dose Admin Propofol Confirm 11/22/20 14:11 Propofol 200 Mg/20 Ml Sdv Administered 11/22/20 14:12 Dose 200 mg .ROUTE .STK-MED ONE Departure - Departure Time of Disposition: 14:46 Disposition: Home, Self-Care 01 Condition: Fair Clinical Impression: Encounter for cardioversion procedure Atrial fibrillation Qualifiers: Atrial fibrillation type: paroxysmal Qualified Code(s): I48.0 - Paroxysmal atrial fibrillation Instructions: Atrial Fibrillation Referrals: Ambrocio Garcia MD [Primary Care Provider] - Forms: ED Department Discharge Additional Instructions: Recommend stopping the digoxin, continue on your other regular medications, please follow-up with cardiology for further evaluation call or return to the emergency department worsening symptoms. Critical Care Note - Critical Care Note Total Time (mins): 30 Sepsis Event Note (ED) - Evaluation Sepsis Screening Result: No Definite Risk - Focused Exam Vital Signs: Vital Signs Temp Pulse Resp BP Pulse Ox 11/22/20 13:21 60 13 145/79 H 11/22/20 12:52 52 L 15 142/72 H 98 11/22/20 12:31 96.8 F L 58 L 13 152/104 H 98 - My Orders Last 24 Hours: My Active Orders 11/22/20 12:42 EKG 12 Lead [EK] Stat 11/22/20 12:43 EKG Documentation Completion [RC] ASDIRECTED 11/22/20 13:50 Peripheral IV Care [RC] . DIRECTED Sodium Chloride 0.9% [Saline Flush] 10 ml FLUSH ASDIRECTED PRN Peripheral IV Insertion Adult [OM.PC] Urgent 11/22/20 14:00 Sodium Chloride 0.9% [Normal Saline] 1,000 ml IV ASDIRECTED - Assessment/Plan Last 24 Hours: My Active Orders 11/22/20 12:42 EKG 12 Lead [EK] Stat 11/22/20 12:43 EKG Documentation Completion [RC] ASDIRECTED 11/22/20 13:50 Peripheral IV Care [RC] . DIRECTED Sodium Chloride 0.9% [Saline Flush] 10 ml FLUSH ASDIRECTED PRN Peripheral IV Insertion Adult [OM.PC] Urgent 11/22/20 14:00 Sodium Chloride 0.9% [Normal Saline] 1,000 ml IV ASDIRECTED Plan: Assessment Acuity = acute Site and laterality = atrial fibrillation paroxysmal status post electrical cardioversion Etiology = unknown Manifestations = symptomatic lightheadedness now resolved Location of injury = Home Lab values = CBC unremarkable BMP unremarkable INR therapeutic 3.07 digoxin subtherapeutic 0.59 Plan He felt symptomatically significantly better after the cardioversion he remains in the 40-50 range for heart rate. Recommend stopping the digoxin felt this was not providing any benefit for him. I have asked him to follow-up with cardiology in the next week or so for further evaluation possibly the sotalol could be stopped and a different choice of medication could be used to keep him in a sinus rhythm This note was dictated using [employer] voice recognition software please call with any questions on syntax or grammar.
[2020-11-22] MEDS ORDERED: Sodium Chloride 0.9% 10 ML Syringe FLUSH PRN (13:50)
[2020-11-22] MEDS ORDERED: Sodium Chloride 0.9% 1,000 ML IV SCH (14:00)
[2020-11-22] MEDS ORDERED: Propofol 200 MG/20 ML SDV ONE (14:11)
[2020-11-22 15:04] VITALS: BP 128/92; PULSE 41
== END 2020-11-22 15:18 | disposition home or self-care (01) ==
LOC: JP.ED 11:50
DX: I48.0 Paroxysmal atrial fibrillation (principal); E78.00 Pure hypercholesterolemia, unspecified; H40.9 Unspecified glaucoma; Z79.899 Other long term (current) drug therapy; Z79.01 Long term (current) use of anticoagulants; Z86.73 Personal history of transient ischemic attack (TIA), and cerebral infarction without residual deficits
CPT/HCPCS: 36415; 80048; 80162; 84484; 85025; 85610; 92960; 93005; 99284; J2704

== ENCOUNTER 2020-12-24 14:39 | Emergency (ER) | payer MEDICARE, BC ==
--- NOTE | 2020-12-24 15:56 | EDM.PDOC ---
ED HPI GENERAL MEDICAL PROBLEM - General Chief Complaint: Cardiovascular Problem Stated Complaint: AFIB Time Seen by Provider: 12/24/20 15:35 Source of Information: Reports: Patient, Old Records, RN Notes Reviewed History Limitations: Reports: No Limitations - History of Present Illness INITIAL COMMENTS - FREE TEXT/NARRATIVE: 80-year-old gentleman presents emergency department today with questions about his atrial fibrillation. He did consult with the [facility] and unfortunately the triage nurse overheard his talk about chest pain he states he has never had chest pain so he was referred to the emergency department for further evaluation. He does admit that he is under a lot of stress with his who has advanced Alzheimer's disease he is the primary caregiver he states he has been in atrial fibrillation for a little over a week was in sinus rhythm for a long time and then bounced into atrial fibrillation he has had 2 cardioversions the summer which have not lasted. He does have plans to talk to his certified scrum master about consultation with electrophysiology. At this time no nausea vomiting shortness of breath chest pain. - Related Data Allergies Allergy/AdvReac Type Severity Reaction Status Date / Time No Known Allergies Allergy Verified 12/24/20 15:27 Home Meds: Home Meds Simvastatin 40 mg PO BEDTIME 10/15/13 [History] Warfarin [Coumadin] 2.5 mg PO ASDIRECTED 05/04/16 [History] Sotalol HCl [Sotalol] 40 mg PO BID 04/22/18 [History] Latanoprost 1 drop EYEBOTH BEDTIME 05/23/19 [History] Docusate Sodium [Colace] 100 mg PO DAILY 07/28/20 [History] Past Medical History HEENT History: Reports: Cataract, Glaucoma, Hard of Hearing, Retinal Detachment Cardiovascular History: Reports: Afib, Blood Clots/VTE/DVT, High Cholesterol, Other (See Below) Other Cardiovascular History: Cardioversion multiple times Respiratory History: Reports: PE Other Respiratory History: 2006 Gastrointestinal History: Reports: Colon Polyp, GERD, Other (See Below) Other Gastrointestinal History: status post colonoscopy 10/29/20 Genitourinary History: Reports: BPH, Other (See Below) Other Genitourinary History: prostrate cancer. prostatectomy Musculoskeletal History: Reports: Other (See Below) Other Musculoskeletal History: fell on ice 2018 and left leg/hip edema since (resolved) Neurological History: Reports: Neuropathy, Peripheral, TIA Psychiatric History: Reports: None Endocrine/Metabolic History: Reports: None Hematologic History: Reports: Anticoagulation Therapy Immunologic History: Reports: None Oncologic (Cancer) History: Reports: Prostate Dermatologic History: Reports: None - Infectious Disease History Infectious Disease History: Reports: Chicken Pox, Measles, Mumps - Past Surgical History Head Surgeries/Procedures: Reports: None HEENT Surgical History: Reports: Cataract Surgery, Retinal Cardiovascular Surgical History: Reports: Cardiac Ablation Respiratory Surgical History: Reports: None GI Surgical History: Reports: Appendectomy, Colonoscopy, EGD, Hernia Repair/Other, Other (See Below) Other GI Surgeries/Procedures: mass removed from colon, polyp removed for biopsy on 10/27/20 Male Surgical History: Reports: Prostatectomy Other Male Surgeries/Procedures: 2009 Endocrine Surgical History: Reports: None Neurological Surgical History: Reports: None Musculoskeletal Surgical History: Reports: Hip Replacement Other Musculoskeletal Surgeries/Procedures:: rigt and left Oncologic Surgical History: Reports: None Dermatological Surgical History: Reports: None Social & Family History - Family History Cardiac: Reports: CAD, [place] Neurological: Reports: Parkinson's Psychiatric: Reports: Other (See Below) Other Psychiatric Family History: brother related to agent orange Oncologic: Reports: Lung - Tobacco Use Tobacco Use Status *Q: Never Tobacco User - Caffeine Use Caffeine Use: Reports: Coffee - Recreational Drug Use Recreational Drug Use: No ED ROS GENERAL - Review of Systems Review Of Systems: See Below Constitutional: Reports: No Symptoms HEENT: Reports: No Symptoms Respiratory: Reports: No Symptoms Cardiovascular: Reports: No Symptoms GI/Abdominal: Reports: No Symptoms ED EXAM, GENERAL - Physical Exam Exam: See Below Exam Limited By: No Limitations General Appearance: Alert, WD/WN, No Apparent Distress Respiratory/Chest: No Respiratory Distress, Lungs Clear, Normal Breath Sounds, No Accessory Muscle Use, Chest Non-Tender Cardiovascular: No Murmur, Irregularly Irregular Course - Vital Signs Last Recorded V/S: Last Vital Signs Temp 97.0 F 12/24/20 15:32 Pulse 63 12/24/20 15:32 Resp 14 12/24/20 15:32 BP 131/87 12/24/20 15:32 Pulse Ox 98 12/24/20 15:32 Departure - Departure Time of Disposition: 15:56 Disposition: Home, Self-Care 01 Condition: Fair Clinical Impression: Rate controlled atrial fibrillation Instructions: Atrial Fibrillation, [id number] Referrals: Ambrocio Garcia MD [Primary Care Provider] - Additional Instructions: Continue with your current medications, keep your follow-up appointment with cardiology call return to the emergency department worsening of symptoms Sepsis Event Note (ED) - Evaluation Sepsis Screening Result: No Definite Risk - Focused Exam Vital Signs: Vital Signs Temp Pulse Resp BP Pulse Ox 12/24/20 15:32 97.0 F 63 14 131/87 98 12/24/20 15:26 97.0 F 63 14 131/87 98 - Assessment/Plan Plan: Assessment Acuity = acute Site and laterality = rate controlled atrial fibrillation Etiology = unknown Manifestations = none Location of injury = Home Lab values = none Plan Continue with current medications, continue follow-up with cardiology and consider consultation with electrophysiology to see if he is a candidate for electrical ablation This note was dictated using [employer] voice recognition software please call with any questions on syntax or grammar.
[2020-12-24 16:27] VITALS: BP 138/84; PULSE 75
== END 2020-12-24 16:32 | disposition home or self-care (01) ==
LOC: JP.ED 14:39
DX: I48.91 Unspecified atrial fibrillation (principal); E78.00 Pure hypercholesterolemia, unspecified; Z86.718 Personal history of other venous thrombosis and embolism; Z79.01 Long term (current) use of anticoagulants; Z79.899 Other long term (current) drug therapy
CPT/HCPCS: 99284

== ENCOUNTER → 2021-09-04 | Day surgery (SDC) | payer MEDICARE, BC ==
[~2021-09-04] MED LIST changes: -Acetaminophen 500 MG Tab PO ONE; +Bupivacaine 0.5%/EPINEPHrine 1:200,000 50 ML MDV ONE; +Meropenem 500 MG SDV ONE; -Meropenem 500 MG in Sodium Chloride 0.9% 50 ML IV ONE; -Neomycin/Polymyxin B 1 ML, Sodium Chloride 0.9% 750 ML IRR ONE; +Sodium Chloride 0.9% 10 ML ONE; +fentaNYL 100 MCG/2 ML SDV ONE; -fentaNYL 250 MCG/5 ML SDV ONE
[2021-09-04 06:38] VITALS: BP 136/81; PULSE 55
== END ==
LOC: JP.SDS 05:54
PROVIDERS: ATTEND Surgery
DX: D12.8 Benign neoplasm of rectum (principal); K21.9 Gastro-esophageal reflux disease without esophagitis; E78.00 Pure hypercholesterolemia, unspecified; N40.0 Benign prostatic hyperplasia without lower urinary tract symptoms; G62.9 Polyneuropathy, unspecified; H61.21 Impacted cerumen, right ear; I82.409 Acute embolism and thrombosis of unspecified deep veins of unspecified lower extremity; I48.0 Paroxysmal atrial fibrillation; Z90.49 Acquired absence of other specified parts of digestive tract; Z98.890 Other specified postprocedural states; Z86.73 Personal history of transient ischemic attack (TIA), and cerebral infarction without residual deficits
CPT/HCPCS: 36415; 80053; 83735; 84100; 85027; 85610; 88305; J0330; J1100; J2185; J2405; J2704; J2710; J3010; J3490; J7121

== ENCOUNTER 2021-11-15 00:42 | Emergency (ER) | payer MEDICARE, BC ==
[2021-11-15] MEDS ORDERED: Sodium Chloride 0.9% 10 ML Syringe FLUSH PRN (01:26)
[2021-11-15 01:51] VITALS: BP 137/82; PULSE 102
[2021-11-15 01:57] LABS: ESTIMATED GFR 85 mL/min (>60)
== END 2021-11-15 03:39 | disposition home or self-care (01) ==
LOC: JP.ED 00:42
DX: L76.22 Postprocedural hemorrhage of skin and subcutaneous tissue following other procedure (principal); L76.32 Postprocedural hematoma of skin and subcutaneous tissue following other procedure; I48.91 Unspecified atrial fibrillation; E78.00 Pure hypercholesterolemia, unspecified; Z79.899 Other long term (current) drug therapy; Z79.01 Long term (current) use of anticoagulants; Z86.73 Personal history of transient ischemic attack (TIA), and cerebral infarction without residual deficits; Z98.890 Other specified postprocedural states
CPT/HCPCS: 36415; 74177; 80048; 85025; 85610; 85730; 99283; 99284

== ENCOUNTER 2023-10-26 17:14 | Emergency (ER) | payer BC, MEDICARE ==
[2023-10-26 17:46] LABS: BASOPHILS ABSOLUTE AUTO 0.06 K/uL (0.00-0.10); BASOPHILS PERCENT AUTO 0.7 % (0.1-1.3); EOSINOPHILS ABSOLUTE AUTO 0.34 K/uL (0.00-0.40); EOSINOPHILS PERCENT AUTO 3.9 % (0.0-5.4); HEMATOCRIT 40.9 % (38.4-49.7); HEMOGLOBIN 14.8 g/dL (12.9-16.9); IMMATURE GRAN PERCENT AUTO 0.2 % (0.0-0.7); LYMPHOCYTES ABSOLUTE AUTO 2.17 K/uL (0.8-3.3); LYMPHOCYTES PERCENT AUTO 24.6 % (11.4-47.7); MEAN CORPUSCULAR HEMOGLOBIN 32.8 pg (31.6-35.5); MEAN CORPUSCULAR HGB CONC 36.2 g/dL (31.6-35.5); MEAN CORPUSCULAR VOLUME 90.7 fL (81.4-99.0); MONOCYTES ABSOLUTE AUTO 0.74 K/uL (0.20-0.90); MONOCYTES PERCENT AUTO 8.4 % (3.3-12.6); NEUTROPHILS ABSOLUTE AUTO 5.48 K/uL (1.0-7.6); NEUTROPHILS PERCENT AUTO 62.2 % (40.0-78.1); PLATELET COUNT,PLT 154 K/uL (130-375); RED BLOOD CELL COUNT 4.51 M/uL (4.14-5.76); WHITE BLOOD CELL COUNT,WBC 8.8 K/uL (3.2-11.0)
[2023-10-26 17:51] LABS: IMMATURE GRAN ABSOLUTE AUTO 0.02 K/uL (0.00-0.23)
[2023-10-26 18:07] LABS: INR 2.8; PROTHROMBIN TIME 27.5 sec (9.2-10.6)
[2023-10-26 18:13] LABS: A/G RATIO 1.1 (1.2-2.2); ALANINE AMINOTRANSFERASE,ALT 18 U/L (12-78); ALBUMIN 3.7 g/dL (3.4-5.0); ALKALINE PHOSPHATASE 83 U/L (46-116); ANION GAP 12.2 mmol/L (5.0-14.0); ASPARTATE AMNIOTRANSFERASE,AST 20 U/L (15-37); BLOOD UREA NITROGEN,BUN 16 mg/dL (7-18); CALCIUM 8.9 mg/dL (8.5-10.1); CARBON DIOXIDE,CO2 24 mmol/L (21-32); CHLORIDE,CL 102 mmol/L (100-108); CREATININE 1.1 mg/dL (0.8-1.3); EST CRCL DRUG DOSING (CG) 51.62 mL/min; ESTIMATED GFR 66 mL/min (>60); GLUCOSE RANDOM 94 mg/dL (74-106); POTASSIUM,K 4.2 mmol/L (3.6-5.2); PRO B-TYPE NATRIUR PEPT,BNPPRO 2250 pg/mL (5-450); PROTEIN TOTAL,TP 7.1 g/dL (6.4-8.2); SODIUM,NA 134 mmol/L (140-148); TROPONIN I HIGH SENSITIVITY 12.6 pg/mL (<=60.3)
[2023-10-26 18:28] VITALS: BP 152/81; PULSE 57
== END 2023-10-26 18:54 | disposition home or self-care (01) ==
LOC: JP.ED 17:14
DX: R07.89 Other chest pain (principal); E78.00 Pure hypercholesterolemia, unspecified; Z90.49 Acquired absence of other specified parts of digestive tract; Z79.899 Other long term (current) drug therapy
CPT/HCPCS: 36415; 80053; 83880; 84484; 85025; 85610; 93005; 99285

== ENCOUNTER 2024-06-16 06:04 | Emergency (ER) | payer MEDICARE ==
[2024-06-16 06:20] VITALS: BP 167/103; PULSE 55
== END 2024-06-16 08:11 | disposition home or self-care (01) ==
LOC: JP.ED 06:04
DX: K59.00 Constipation, unspecified (principal); I48.91 Unspecified atrial fibrillation; Z90.49 Acquired absence of other specified parts of digestive tract; Z86.73 Personal history of transient ischemic attack (TIA), and cerebral infarction without residual deficits; Z79.01 Long term (current) use of anticoagulants; Z79.899 Other long term (current) drug therapy
CPT/HCPCS: 99283